=== PATIENT | male | born 1955 | race Caucasian/White ===

== ENCOUNTER 2020-01-09 09:43 | Emergency (ER) | payer MEDICARE, OTHER ==
--- NOTE | 2020-01-09 10:20 | ED Physician Documentation ---
PD HPI HEENT - Stated complaint Stated Complaint: TOOTH PX - History obtained from History obtained from: Patient - History of Present Illness Timing - onset: How many days ago (2-3) Timing - duration: Days Timing - details: Abrupt onset, Still present Location: Tooth (left lower premolar pain at decayed tooth, with swelling of gum and face.) Worsens: Swalllowing, Other (palpation, chewing, opening mouth.) Associated symptoms: No: Fever, Congestion Recently seen: Not recently seen (he tried to get appt with [facility] and no openings available for couple weeks.) Review of Systems Constitutional: denies: Fever, Chills, Myalgias Nose: denies: Rhinorrhea / runny nose, Congestion Throat: denies: Sore throat Cardiac: denies: Chest pain / pressure Respiratory: denies: Cough GI: reports: Nausea. denies: Vomiting PD PAST MEDICAL HISTORY - Past Medical History Past Medical History: No PD ED PE NORMAL - Vitals Vital signs reviewed: Yes - General General: Alert and oriented X 3, Well developed/nourished, Other (appears in pain and has obvious swelling left mandible area. Normal voice. Guarded ROM of mouth opening. ) - HEENT HEENT: Pharynx benign (posterior pharynx is normal. The left lower premolar area with decay of tooth to gumline and there is local swelling of gum and to the mandible soft tissue without fluctuant area per se. Anterior neck with some adenopathy but does not feel full. Normal voice. ) - Neck Neck: Supple, no meningeal sign - Cardiac Cardiac: RRR, No murmur - Respiratory Respiratory: Clear bilaterally PD MEDICAL DECISION MAKING - ED course Complexity details: considered differential, d/w patient Departure - Departure Disposition: 01 Home, Self Care Clinical Impression: Dental abscess, Facial pain, acute Instructions: ED Abscess Dental Discharge Date/Time: 01/09/20 10:41
[2020-01-09] MEDS ORDERED: oxyCODONE 5 MG TABLET ONE (10:43)
[2020-01-09] MEDS ORDERED: CLINDAMYCIN 150 MG CAPSULE PO ONE (10:43)
[2020-01-09] MEDS ORDERED: ACETAMINOPHEN 325 MG TABLET PO ONE (10:44)
== END 2020-01-09 10:41 | disposition home or self-care (01) ==
LOC: ED 09:43
DX: K02.9 Dental caries, unspecified (principal); K04.7 Periapical abscess without sinus; G50.1 Atypical facial pain
CPT/HCPCS: 99282; A9270

== ENCOUNTER 2020-01-12 11:08 | Inpatient (IN) | payer OTHER ==
[2020-01-12] MEDS ORDERED: HYDROmorphone 1 MG/ML CARPUJECT IVP STA ×2 (11:43→13:48)
--- NOTE | 2020-01-12 11:45 | ED Physician Documentation ---
History of Present Illness - Stated complaint Stated Complaint: MOUTH PX/SWELLING - Chief complaint Chief Complaint: Heent - History obtained from History obtained from: Patient - Additonal information Additional information: 64-year-old male who has a history of hypertension and diabetes returns to the emergency department with worsening left lower jaw pain and facial swelling. He was seen here 3 days ago for similar and found to have a decayed molar. He was started on clindamycin and advised to follow-up with dentistry. Patient reports to me that he went to [facility] dental clinics but was told that the infection was too severe for them to do work on. Since then he has had progressive swelling of the jaw. He some very mild trismus and reports that his neck hurts. He has no fevers. No dysphonia. he denies chest pain, but reports that he is nauseated when he takes the clindamycin. denies vomiting has a hx of dm; does not check his blood glucose at home pmh: htn, DM soc: + tobacco meds: metformin, gabapentin, Omeprazole, propranolol, atorvastatin, chlorthalidone, trazodone, losartan Review of Systems Constitutional: denies: Fever, Chills, Myalgias, Fatigue Eyes: reports: Reviewed and negative Ears: reports: Reviewed and negative Nose: reports: Reviewed and negative Throat: reports: Dental pain / toothache, Sore throat, Other (left lower facial swelling extending just below mandible) Cardiac: denies: Chest pain / pressure, Palpitations Respiratory: denies: Dyspnea GI: reports: Nausea. denies: Vomiting : reports: Reviewed and negative Skin: reports: Reviewed and negative Musculoskeletal: reports: Neck pain (left lower). denies: Back pain Neurologic: reports: Reviewed and negative PD PAST MEDICAL HISTORY - Past Medical History Past Medical History: No - Present Medications Home Medications: Ambulatory Orders Medication Instructions Recorded Confirmed Atorvastatin [Lipitor] 20 mg PO DAILY 01/12/20 01/12/20 Chlorthalidone 25 mg PO DAILY 01/12/20 01/12/20 Gabapentin 300 mg PO TID 01/12/20 01/12/20 Losartan [Cozaar] 50 mg PO DAILY 01/12/20 01/12/20 Omeprazole 20 mg PO DAILY 01/12/20 01/12/20 Propranolol HCl 20 mg PO BID 01/12/20 01/12/20 metFORMIN [Glucophage] 850 mg PO TIDWM 01/12/20 01/12/20 traZODone [Desyrel] 100 mg PO HS 01/12/20 01/12/20 - Allergies Allergies/Adverse Reactions: Allergies Allergy/AdvReac Type Severity Reaction Status Date / Time No Known Drug Allergies Allergy Verified 01/12/20 11:16 - Social History Does the pt smoke?: No Smoking Status: Never smoker PD ED PE EXPANDED - General General: Alert, Anxious, In Pain - HEENT HEENT: PERRL, EOMI, Moist mucous membranes, Dental decay (left lower posterior molar grossly decayed to the gumline; no soft tissue swelling of the floor of mouth. normal phonation) - Eyes Eyes: PERRL - Neck Neck: Supple w/out meningeal sx, Adenopathy, Soft tissue TTP (left lateral neck; below angle of mandible. normal swallow though painful), Other (Swelling of the left lower jaw from just below the cheek to below the submandibular region) - Cardiac Cardiac: Regular Rate, Murmur Present, Radial strong equal, Cap refill < 2 sec - Respiratory Respiratory: Clear to ausultation crystal. No: Distress, Labored - Abdomen Abdomen: Normal Bowel sounds. No: Tender to palpation - Derm Derm: Normal color. No: Rash - Neuro Neuro: Alert and Oriented X 3, CNII-XII intact - GCS Eye Opening: Spontaneous Motor: Obeys Commands Verbal: Oriented Total: 15 Results - Vitals Vitals: Vital Signs - 24 hr 01/12/20 01/12/20 11:13 13:42 Temperature 36.6 C Heart Rate 96 83 Respiratory 16 18 Rate Blood Pressure 182/83 H 193/85 H O2 Saturation 98 95 Oxygen O2 Source Room air - EKG (time done) 1229 Rate: Rate (enter#) (84) Rhythm: NSR [place]: Normal Intervals: Prolonged [place], Prolonged QT, Other (IVCD) QRS: Normal Ischemia: Normal ST segments Compare to prior EKG: Old EKG unavailable Computer interpretation: Agree with computer - Labs Labs: Laboratory Tests 01/12/20 01/12/20 01/12/20 11:55 11:55 11:55 WBC 14.9 H RBC 4.98 Hgb 14.4 Hct 41.5 L MCV 83.3 MCH 28.9 MCHC 34.7 RDW 12.7 Plt Count 455 H MPV 9.7 Neut # (Auto) 11.1 H Lymph # (Auto) 1.8 [place] # (Auto) 1.6 H Eos # (Auto) 0.2 Baso # (Auto) 0.1 Absolute Nucleated RBC 0.00 Band Neuts % (Manual) Not Reportable Abnorm Lymph % (Manual) Not Reportable Nucleated RBC % 0.0 Neutrophils # (Manual) Not Reportable Lymphocytes # (Manual) Not Reportable Monocytes # (Manual) Not Reportable Eosinophils # (Manual) Not Reportable Basophils # (Manual) Not Reportable Differential Comment MANUAL=AUTO DIFF Platelet Estimate NORMAL (130-450,000) Platelet Morphology NORMAL APPEARANCE RBC Morph Micro Appear NORMAL APPEARANCE Sodium 137 Potassium 2.5 L* Chloride 91 L Carbon Dioxide 25 Anion Gap 21.0 H BUN 19 Creatinine 1.1 Estimated GFR (MDRD) 67 L Glucose 141 H Calcium 7.9 L Phosphorus Magnesium Total Bilirubin 1.1 H AST 13 ALT 13 Alkaline Phosphatase 65 Troponin I High Sens 8.8 Total Protein 8.4 H Albumin 3.6 Globulin 4.8 H Albumin/Globulin Ratio 0.8 L Lipase 22 01/12/20 11:55 WBC RBC Hgb Hct MCV MCH MCHC RDW Plt Count MPV Neut # (Auto) Lymph # (Auto) [place] # (Auto) Eos # (Auto) Baso # (Auto) Absolute Nucleated RBC Band Neuts % (Manual) Abnorm Lymph % (Manual) Nucleated RBC % Neutrophils # (Manual) Lymphocytes # (Manual) Monocytes # (Manual) Eosinophils # (Manual) Basophils # (Manual) Differential Comment Platelet Estimate Platelet Morphology RBC Morph Micro Appear Sodium Potassium Chloride Carbon Dioxide Anion Gap BUN Creatinine Estimated GFR (MDRD) Glucose Calcium Phosphorus 2.8 Magnesium 0.6 L* Total Bilirubin AST ALT Alkaline Phosphatase Troponin I High Sens Total Protein Albumin Globulin Albumin/Globulin Ratio Lipase - Rads (name of study) CT Neck soft tissue Radiology: Final report received (Phlegmonous change in the left sided mandibular space with adjacent left mandibular teeth demonstrating carious and periodontal disease. No organized rim-enhancing fluid collection identified at this time) PD MEDICAL DECISION MAKING - ED course Complexity details: reviewed results, considered differential, d/w patient, d/w [employer] consultant (Sheila MCELROY) ED course: 64-year-old male with a hx of htn and DMII, returns to the emergency department for evaluation of increased left lower jaw swelling just extending below the submandibular space. He was seen a few days ago for concerns of dental infection. He was started on clindamycin at the time of original ED evaluation. a CT scan today was done which demonstrates a phlegmonous change in the left submandibular area without a rim-enhancing or focalized abscess seen. On exam he is exquisitely painful with mild trismus. This case was discussed with Dr. Sahra Sosa BRANDYN. He would like to see the patient this evening or early in the am. Patient was noted to be hypokalemic with a potassium of 2.5 and a magnesium of 0.6. We have instituted potassium and magnesium replacement here in the emergency department. Given electrolyte abnormalities pt will be admitted to obs status, pending OMFS evaluation. Patient will be n.p.o. as of 1:45 PM. He has been given IV ceftriaxone here in the ED and decadron to help with swelling and trismus. Pt does have a moderately elevated WBC. he is not hypotensive, febrile or tachycardic. Pt does not present as septic. I have spoken with Dr. Hardy hospitalist who has agreed to admit the patient to obs pending OMFS. Departure - Departure Disposition: ED Place in Observation
[2020-01-12] MEDS ORDERED: cefTRIAXone 1 GM in SODIUM CHLORIDE 0.9% MINIBAG 100 ML IV STA (11:50)
[2020-01-12] MEDS ORDERED: ONDANSETRON 4 MG/2 ML VIAL IVP STA (11:51)
[2020-01-12] MEDS ORDERED: IOVERSOL 320 100 ML VIAL IVP ONE ×2 (11:54→17:05)
[2020-01-12 12:00] LABS: BASOPHILS # (AUTO) 0.1 10^3/uL (0.0-0.1); BASOPHILS % (AUTO) 0.5 %; EOSINOPHILS # (AUTO) 0.2 10^3/uL (0.0-0.7); EOSINOPHILS % (AUTO) 1.1 %; HGB - HEMOGLOBIN 14.4 g/dL (14.0-18.0); LYMPHOCYTES # (AUTO) 1.8 10^3/uL (1.5-3.5); LYMPHOCYTES % (AUTO) 12.3 %; MEAN CORPUSCULAR HEMOGLOBIN 28.9 pg (27.0-31.0); MEAN CORPUSCULAR HGB CONC 34.7 g/dL (32.0-36.0); MEAN CORPUSCULAR VOLUME 83.3 fL (80.0-94.0); MEAN PLATELET VOLUME 9.7 fL (7.4-11.4); MONOCYTES # (AUTO) 1.6 10^3/uL (0.0-1.0); MONOCYTES % (AUTO) 10.7 %; NEUTROPHILS # (AUTO) 11.1 10^3/uL (1.5-6.6); NEUTROPHILS % (AUTO) 74.7 %; PLT - PLATELET COUNT 455 10^3/uL (130-450); RED BLOOD COUNT 4.98 10^6/uL (4.70-6.10); RED CELL DISTRIBUTION WIDTH 12.7 % (12.0-15.0); WHITE BLOOD COUNT 14.9 x10^3/uL (4.8-10.8)
[2020-01-12] MEDS ORDERED: cefTRIAXone 1 GM VIAL ONE (12:06)
[2020-01-12 12:18] LABS: ALBUMIN 3.6 g/dL (3.2-5.5); ALBUMIN/GLOBULIN RATIO 0.8 (1.0-2.2); BILIRUBIN,TOTAL 1.1 mg/dL (0.2-1.0); CALCIUM 7.9 mg/dL (8.5-10.3); CREATININE 1.1 mg/dL (0.6-1.2); TOTAL PROTEIN 8.4 g/dL (6.7-8.2)
[2020-01-12] MEDS ORDERED: POTASSIUM CHLOR 10 MEQ/100 ML 10 MEQ/100 ML BAG IV ONE (12:22)
[2020-01-12] MEDS ORDERED: POTASSIUM CHLORIDE 20 MEQ/15 ML UDC PO STA (12:22)
[2020-01-12 12:28] LABS: PLATELET ESTIMATE, MANUAL NORMAL (130-450,000) (NORMAL); PLATELET MORPHOLOGY NORMAL APPEARANCE (NORMAL); RBC MORPHOLOGY (MULTIPLE) NORMAL APPEARANCE (NORMAL)
[2020-01-12 12:29] LABS: DIFFERENTIAL COMMENT MANUAL=AUTO DIFF
[2020-01-12 12:59] LABS: PHOSPHORUS 2.8 mg/dL (2.5-4.6)
[2020-01-12 13:01] LABS: MAGNESIUM 0.6 mg/dL (1.7-2.8)
[2020-01-12] MEDS ORDERED: MAGNESIUM SULFATE 2 GRAM 2 GM/50 ML BAG IV ONE ×2 (13:04→19:00)
--- NOTE | 2020-01-12 13:33 | CT Report ---
PROCEDURE: SOFT TISSUE NECK W INDICATIONS: Dental infection, neck swelling CONTRAST: IV CONTRAST: Optiray 320 ml: 100 PO CONTRAST: *NO PO CONTRAST TECHNIQUE: After the administration of intravenous contrast, 3.0 mm axial sections acquired from the sella to th e aortic arch. Additional oblique axial 3.0 mm sections acquired through the pharynx. 3 mm thick co prudencio reformats were generated. For radiation dose reduction, the following was used: automated exp osure control, adjustment of mA and/or kV according to patient size. COMPARISON: None. FINDINGS: Image quality: Excellent. Lymph nodes: No enlarged lymph nodes seen throughout the neck. Vessels: Reactive lymphadenopathy in the left neck is present, involving the anterior cervical statio ns at levels 2, 3, and 4. Neck spaces: There is masslike hypodense phlegmonous change in the left seventh interspace which gigi sures approximately 3.6 x 4.3 cm in maximum axial dimension and 5.5 cm maximum cranial caudal dimensi on. This does not appear to be organized or peripherally enhancing to indicate abscess. There is mass effect on the adjacent vasculature and to a lesser degree on the floor of mouth musculature. Mild ma ss effect also present on the submandibular gland. No significant oropharyngeal narrowing. Glands: The parotid and submandibular glands appear normal. The thyroid is normal in size. Intracranial compartment and face: Limited views of the included intracranial compartment reveal no m ass effect or abnormal enhancement. Orbital structures unremarkable. Visualized portions of the paran sahil sinuses and mastoid air cells are clear. Bones: There are carious lesions and periapical lucencies of the left mandibular first and second mo lars, with the reduction through the lingual cortex and inferior mandibular cortex adjacent to the se cond molar into the left submandibular space. No suspicious bony lesions. Visualized sinuses and mas toids appear unremarkable. IMPRESSION: Phlegmonous change in the left-sided mandibular space with adjacent left mandibular teeth demonstrati ng carious and periodontal disease. No organized rim-enhancing fluid collection identified at this ti me. Reviewed by: Joao Mcmahon MD on 01/12/2020 1:31 PM PDT Approved by: Joao Mcmahon MD on 01/12/2020 1:31 PM PDT Station ID: [id number]
[2020-01-12] MEDS ORDERED: AMOX/CLAV 875 MG/125 MG TABLET PO STA (13:37)
[2020-01-12] MEDS ORDERED: DEXAMETHASONE 10 MG/ML VIAL IV STA (13:48)
[2020-01-12] MEDS ORDERED: SODIUM CHLORIDE FLUSH 0.9% 10 ML SYRINGE IVP PRN (14:20)
[2020-01-12] MEDS ORDERED: oxyCODONE 5 MG TABLET PO PRN (14:20)
[2020-01-12] MEDS ORDERED: ONDANSETRON ODT 4 MG TABLET TL PRN (14:20)
[2020-01-12] MEDS ORDERED: ONDANSETRON 4 MG/2 ML VIAL IVP PRN (14:20)
[2020-01-12] MEDS ORDERED: PROCHLORPERAZINE 10 MG/2 ML VIAL IVP PRN (14:56)
[2020-01-12] MEDS ORDERED: PIPERACILLIN/TAZOBACTAM 4.5 GM in SODIUM CHLORIDE 0.9% MINIBAG 100 ML IV SCH (15:00)
[2020-01-12] MEDS ORDERED: LACTATED RINGERS 1,000 ML IV SCH (15:00)
--- NOTE | 2020-01-12 15:18 | PHARMACY PROGRESS NOTE ---
- Best Possible Medication History Admit Date and Time: 01/12/20 1420 Processed by: Nursing Medication History completed: Yes As the person ultimately responsible for medication therapy, providers are able to order a medication from an existing home medication list in [facility] via the "Reconcile Routine" prior to Confirmation of that medication by network desktop support specialist. Such practice is discouraged except when the physician, in their clinical judgment, deems that a medical need exists for a medication without regard to previous use.
--- NOTE | 2020-01-12 15:21 | HISTORY & PHYSICAL EXAMINATION ---
Chief Complaint - Chief Complaint Chief Complaint: dental pain History of Present Illness - Admitted From Admitted From:: HOme/ER - History Obtained From Records Reviewed: [facility] History obtained from: patient and ROSALINDA Parks Exam Limitations: none - History of Present Illness HPI Comment/Other: 64-year-old gentleman who has diabetes mellitus, hypertension and presented to the emergency room January 08 with tooth pain. The left lower premolar region, and was causing some swelling of the gingiva, and soft tissues of the face in that area. It really hurts to chew, and it was pain that was radiating to the left ear. He has been trying to get an appointment with [facility] and there have been no openings. Dr. Claudio sent him home with antibiotics/clindamycin and to be seen at [facility]. They did finally see him at [facility], but the dental abscess was so severe, they sent him back to the emergency room. The pain is getting worse. The swelling is getting worse. There is heat and trismus associated with it in the jaw. But there is no nausea, vomiting. No fever, chills. He was seen in the emergency room with a temperature of 36.6. Heart rate 96. Blood pressure 182/83. 16 respiration and 98% saturation on room air. He has dental decay of the left lower posterior molar that was decayed to the gumline. No soft tissue swelling at the roof of the mouth or the floor of the mouth. The neck was supple. He had swelling of the left lateral neck, below the angle of the mandible. Also had swelling above the jawline to just below the zygomatic arch. Painful swallowing but he was able to do it. White cell count was 14.9. CT neck/soft tissue showed phlegmonous changes in the left-sided mandibular space with adjacent left mandibular teeth demonstrating caries and periodontal disease. No organized rim-enhancing fluid collection at this time. Dr. Jatinder Sosa was consulted. He is oral maxillofacial surgery. He would like the patient placed in observation under our care. He will see the patient in consultation. History - Past Medical History Cardiovascular: reports: Hypertension, High cholesterol Respiratory: reports: None Neuro: reports: Peripheral neuropathy (Severe from mid shins down to feet), Tremors (With masked facies, and frozen gait) Endocrine/Autoimmune: reports: Type 2 diabetes (Gets A1c done once a year. He is about due for one. Cannot remember his last one. Does not check his sugars at home.) GI: reports: None : reports: None HEENT: reports: Other (Previous history of facial fractures, jaws being wired and cannot open up his mouth very much) Psych: reports: Anxiety, Claustrophobia Derm: reports: None MRSA Hx?: No Other Past Medical History: diabetic neuropathy - Past Surgical History HEENT: reports: Other (Treatment of facial fractures) - Family & Social History Family History Comment/Other: Dad at age 62 of heart disease. Mom in her 50s of heart disease. 1 brother and 2 sisters. He is not in contact with the sisters. His brother has an AICD in place, and has coronary artery disease. 2 daughters. One daughter has developmental delay. Severe obesity. Most likely has high blood pressure and diabetes but she refuses to take care of it. Living arrangement: At home Living Situation: With spouse/s.o., With family Social History Notes: He was in the and is retired. 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 Was on his feet for decades. 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 to his first . Both his daughters live with them. And one of their grandkids. He started smoking at the age of 14 and smokes a pack per day. Used to have a history of alcohol abuse but his last use was 10 years ago. - Substance History Tobacco Details: Cigarettes - POLST Patient has POLST: No POLST Status: Full Code Meds/Allgy - Home Medications Home Medications: Ambulatory Orders Medication Instructions Recorded Confirmed Atorvastatin [Lipitor] 20 mg PO DAILY 01/12/20 01/12/20 Chlorthalidone 25 mg PO DAILY 01/12/20 01/12/20 Gabapentin 300 mg PO TID 01/12/20 01/12/20 Losartan [Cozaar] 50 mg PO DAILY 01/12/20 01/12/20 Omeprazole 20 mg PO DAILY 01/12/20 01/12/20 Propranolol HCl 20 mg PO BID 01/12/20 01/12/20 metFORMIN [Glucophage] 850 mg PO TIDWM 01/12/20 01/12/20 traZODone [Desyrel] 100 mg PO HS 01/12/20 01/12/20 - Allergies Allergies/Adverse Reactions: Allergies Allergy/AdvReac Type Severity Reaction Status Date / Time No Known Drug Allergies Allergy Verified 01/12/20 11:16 Review of Systems - Constitutional Constitutional: denies: Fatigue, Fever, Chills, Malaise, Weakness, Poor appetite - Eyes Eyes: denies: Pain, Amaurosis, Vision loss - Ears, Nose & Throat Ears, Nose & Throat: reports: Sore throat (Along the left side. It hurts. This is associated with the dental caries.), Bleeding gums, Dental decay, Dental pain. denies: Hearing aids, Nasal obstruction, Nasal congestion, Postnasal drainage, Hoarseness, Mouth lesions - Cardiovascular Cariovascular: denies: Irregular heart rate, Palpitations, Chest pain, Edema, Syncope, Exertional dyspnea, Decr. exercise tolerance, Orthopnea - Respiratory Respiratory: reports: Other (Smoking does not appear to affect any of his pulmonary problems he said). denies: Cough, Sputum production, Wheezing, Snoring, SOB at rest, SOB with exertion - Gastrointestinal Gastrointestinal: reports: Nausea. denies: Abdominal pain, Abdominal distention, Constipation, Diarrhea, Change in bowel habits, Rectal bleeding, Vomiting, Reflux/heartburn, Bloating - Genitourinary Genitourinary: reports: Other (He is alarmed when I ask him these questions. He says "I know what vascularly to". He thinks I am about to give him a prostate exam and he is adamant he has never had 1 and never will get 1). denies: Dysuria, Frequency, Urgency, Hematuria, Incontinence - Musculoskeletal Musculoskeletal: reports: Other (Chronic lancinating burning pain of his skin and muscles from mid [place] down to his feet.It hurts to walk. As such she does not exercise.) - Integumentary Integumentary: denies: Rash, Pruritis, Lesions, Dryness - Neurological Neurological: denies: General weakness, Focal weakness, Headache, Memory problems, Pre-existing deficit - Psychiatric Psychiatric: reports: Anxiety. denies: Suicidal, Delusions - Endocrine Endocrine: denies: Polyuria, Polydypsia, Polyphagia - Hematologic/Lymphatic Hematologic/Lymphatic: denies: Anemia, Blood clots, Lymphadenopathy Prior Level of Functionality: Independent with activities of daily living. Needs no assist. Still drives a car, pays bills, takes care of his house.Really does not get to the doctor very often. He is followed by the [facility] in [place]. Exam - Vital Signs Vital Signs: Vital Signs x48h Temp Pulse Pulse Resp BP BP Pulse Ox 01/12/20 15:06 37.5 C 79 16 189/67 H 96 01/12/20 14:43 78 12 156/73 H 99 01/12/20 13:42 83 18 193/85 H 95 01/12/20 11:13 36.6 C 96 16 182/83 H 98 - Physical Exam General Appearance: positive: Alert, Moderate distress (His left jaw, left ear are killing him and he would like something for pain. "I am not staying here af ter tomorrow morning so you better fix this"), Other (Disheveled appearing tall white male with a pastrana. He says he is really scared about getting Covid in this place) Eyes Bilateral: positive: PERRL, EOMI ENT: positive: Other (Gingivitis diffusely but the floor of his left gums are particularly bad with a tooth that is down to the gumline. Pain to touch. But no drainage or bogginess. Pain starts along the submandibular area and along the jawline. Redness, swelling going above the jawline to just under his cheekbone, d) Neck: positive: Trachea midline Respiratory: positive: Chest non-tender. negative: Wheezes, Rales, Rhonchi Cardiovascular: positive: Regular rate & rhythm, Other (Very hypertensive while he is here.). negative: Systolic murmur, Gallop/S4, Friction rub Peripheral Pulses: positive: 0 Abdomen: positive: Non-tender, No organomegaly, Nml bowel sounds, No distention Skin: positive: Warm, Dry. negative: Diaphoresis Extremities: positive: Full ROM, No pedal edema, Other (He does not like to have the skin or muscles touched around the calves, shins, feet. He says that he is hyperesthetic and it is just very uncomfortable to have anybody examine his lower extremities due to his peripheral neuropathy.). negative: Joint swelling Neurologic/Psychiatric: positive: Oriented x3, CN's nml (2-12). negative: Motor nml (Bilateral resting and intention tremors of the upper extremities. No cogwheel rigidity. He describes gait ataxia.), Sensation nml (Dense loss of sensation from feet all the way up to mid calf), Slurred/abnml speech Conclusion/Plan - Problem List (1) Submandibular space infection Conclusion/Plan: Considering this patient is immunocompromised with diabetes, recommendations are that he can be on cefepime plus metronidazole or imipenem or meropenem or Zosyn. I have chosen Zosyn. Plan: Observation status Consultation with oral maxillofacial surgery Zosyn Daily CBC Tylenol for mild pain, short acting opiate for moderate pain, morphine for severe pain. Zofran written for but his QT interval is very long. As such switch to Compazine. (2) Pre-op exam Conclusion/Plan: NSQIP calculator For this semiurgent case with diabetes, smoker, male shows a serious complication risk of 8.5%. Any complication 10.4%. He will probably need 2-1/2 days according to their scoring. Will reassess tomorrow morning. Dr. Sosa plans on doing surgery at 6 AM. After surgery see if we need to change status to inpatient. (3) Controlled type 2 diabetes mellitus Conclusion/Plan: Sliding scale insulin. We will hold off on metformin while he is here. Qualifiers: Diabetes mellitus alf insulin use: without laborer marine terminal use Diabetes mellitus complication status: without complication Qualified Code(s): E11.9 - Type 2 diabetes mellitus without complications (4) Electrolyte disturbance Conclusion/Plan: Hypokalemia, hypomagnesemia. He is received 10 mEq IV potassium in the ER with 20 mEq p.o. He is also received 2 g of magnesium. Repeat level check in the next 4 hours. Supplement as needed. (5) HTN (hypertension) Conclusion/Plan: Resume Cozaar, propranolol in the morning. Hold off on chlorthalidone until he is eating and drinking normally. Qualifiers: Hypertension type: essential hypertension Qualified Code(s): I10 - Essential (primary) hypertension (6) Tremor observed on examination Conclusion/Plan: He says that there is a possibility of Parkinson's. But he is never really talked about it with [facility]. He has had this for several decades now. Noticing that he is having more problems with gait ataxia and freezing movements. Plan: I will find out where to send this current [facility]. I have reached out to the [facility]. Left my name and number for them to call me so I can fax them a note. - Lab Results Lab results reviewed: Yes Fish Bones: 01/12/20 11:55 01/12/20 18:18 - Diagnostic Imaging Results Diagnostic Imaging Results: positive: Final report reviewed Diagnostic Imaging Results Comments: report result noted in HPI. - EKG Results EKG Interpreted Independently: No Core Measures - Anticipated LOS I expect patient to be DC'd or transferred within 96 hours.: Yes - DVT/VTE - Prophylaxis VTE/DVT Device ordered at admit?: Yes
[2020-01-12] MEDS: MORPHINE 2 MG/ML CARPUJECT IVP PRN ×3 (15:57→21:35)
[2020-01-12] MEDS: NICOTINE 14 MG PATCH TOP SCH (15:57)
[2020-01-12] MEDS: SODIUM CHLORIDE FLUSH 0.9% 10 ML SYRINGE IVP SCH (15:58)
[2020-01-12] MEDS ORDERED: SODIUM CHLORIDE 0.9% 1,000 ML IV ONE (16:15)
[2020-01-12] MEDS: SODIUM CHLORIDE 0.9% 1,000 ML IV SCH (16:22)
--- NOTE | 2020-01-12 19:11 | CONSULTATION NOTE ---
Referring Provider Name of Referring Provider:: Coco Hardy Consult Date: 01/12/20 Chief Complaint - Chief Complaint Chief Complaint: jaw pain History of Present Illness - Admitted From Admitted From:: ER - History Obtained From History obtained from: Patient and chart - History of Present Illness HPI Comment/Other: Bandar is a 64 yo M who has is admitted for swelling of the left neck and electrolyte imbalance. He reports that his neck has been swollen for "2-3 weeks" and that recently it has become much worse. Two days ago he presented to the ER and was started on Clindamycin and then asked to visit his dentist. He was unable to be treated at the dentist and he worsened, until today when he presented again to the ER. He was found to have a K+ of 2.5 and a Mg of 0.6. CT of the neck revealed a 4 cm flegmon in the left sumandibular region. OMFS was consulted for evaluation and management of his swelling. He endorses pain when swallowing, poor PO intake, chronic difficulty opening 2/2 trauma to the face years ago requiring reconstruction, and severe anxiety about staying in the hospital. He denies fever, chills, nausea, emesis, vision changes, dyspnea, chest pain. History - Past Medical History Cardiovascular: reports: Hypertension, High cholesterol Respiratory: reports: None Neuro: reports: Peripheral neuropathy (Severe from mid shins down to feet), Tremors (With masked facies, and frozen gait) Endocrine/Autoimmune: reports: Type 2 diabetes (Gets A1c done once a year. He is about due for one. Cannot remember his last one. Does not check his sugars at home.) GI: reports: None : reports: None HEENT: reports: Other (Previous history of facial fractures, jaws being wired and cannot open up his mouth very much) Psych: reports: Anxiety, Claustrophobia Musculoskeletal: reports: Other Derm: reports: None MRSA Hx?: No Other Past Medical History: diabetic neuropathy - Past Surgical History HEENT: reports: Other (Treatment of facial fractures) - Family & Social History Family History Comment/Other: Dad at age 62 of heart disease. Mom in her 50s of heart disease. 1 brother and 2 sisters. He is not in contact with the sisters. His brother has an AICD in place, and has coronary artery disease. 2 daughters. One daughter has developmental delay. Severe obesity. Most likely has high blood pressure and diabetes but she refuses to take care of it. Living arrangement: At home Living Situation: With spouse/s.o., With family Social History Notes: He was in the and is retired. 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 Was on his feet for decades. 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 to his first . Both his daughters live with them. And one of their grandkids. He started smoking at the age of 14 and smokes a pack per day. Used to have a history of alcohol abuse but his last use was 10 years ago. - Substance History Tobacco Details: Cigarettes - POLST Patient has POLST: No POLST Status: Full Code Meds/Allgy - Home Medications Home Medications: Ambulatory Orders Medication Instructions Recorded Confirmed Atorvastatin [Lipitor] 20 mg PO DAILY 01/12/20 01/12/20 Chlorthalidone 25 mg PO DAILY 01/12/20 01/12/20 Gabapentin 300 mg PO TID 01/12/20 01/12/20 Losartan [Cozaar] 50 mg PO DAILY 01/12/20 01/12/20 Omeprazole 20 mg PO DAILY 01/12/20 01/12/20 Propranolol HCl 20 mg PO BID 01/12/20 01/12/20 metFORMIN [Glucophage] 850 mg PO TIDWM 01/12/20 01/12/20 traZODone [Desyrel] 100 mg PO HS 01/12/20 01/12/20 - Allergies Allergies/Adverse Reactions: Allergies Allergy/AdvReac Type Severity Reaction Status Date / Time No Known Drug Allergies Allergy Verified 01/12/20 11:16 Review of Systems - Constitutional Constitutional: reports: Other (A 14 point ROS was completed and negative except as noted in HPI.) Exam - Vital Signs Reviewed Vital Signs: Yes Vital Signs: Vital Signs x48h Temp Pulse Pulse Resp BP BP Pulse Ox 01/12/20 16:57 37.3 C 75 20 158/77 H 94 01/12/20 15:06 37.5 C 79 16 189/67 H 96 01/12/20 14:43 78 12 156/73 H 99 01/12/20 13:42 83 18 193/85 H 95 01/12/20 11:13 36.6 C 96 16 182/83 H 98 - Physical Exam General Appearance: positive: Mild distress Eyes Bilateral: positive: PERRL, EOMI ENT: positive: Other (BLANK 28mm. FOM elevated on the L, Tongue not elevated. No drainage. Difficult to see the decayed teeth, but it is clear there there are decayed mandibular left posterior teeth. Uvula midline, no lateral pharyngeal swelling.) Neck: positive: Other (swelling and induration of the left submandibular space, unable to palpate the inferior border of the mandible on the left. Mild erythema of the overlying skin.) Respiratory: positive: Chest non-tender, No respiratory distress Cardiovascular: positive: Regular rate & rhythm Abdomen: positive: Non-tender, No distention Skin: positive: Color nml Extremities: positive: Non-tender, Full ROM Neurologic/Psychiatric: positive: CN's nml (2-12) Conclusion/Plan - Diagnosis Diagnosis: Abscess of the left submandibular, sublingual, and buccal spaces secondary to necrotic posterior left mandibular teeth - Plan Plan: Extraoral incision and drainage of the left submandibular, sublingual, and buccal spp w/ removal of teeth as needed. - NPO after 10pm tonight - surgery at 0600 tomorrow - follow K+ and Mg - Recommend Unasyn 3g q6h while in house and Augmentin 875mg BID x 7 days after d/c - Anticipate d/c on Thursday in the am if progressing well Thank you for including me in Bandar's care. Please call me if you have any questions. Jatinder Sosa DDS [phone] - Lab Results Lab results reviewed: Yes Fish Bones: 01/12/20 11:55 01/12/20 18:18 - Diagnostic Imaging Results Diagnostic Imaging Results: positive: Other (4-5 cm perimandibular abscess on the L w/ mild mass effect on the airway.)
--- NOTE | 2020-01-12 19:19 | ANESTHESIA ---
Pre-Anesthesia VS, & Labs - Diagnosis Left neck abscess secondary to necrotic mandibular teeth - Procedure Percutaneous incision and drainage of left neck with removal of teeth as necessary Vital Signs: Temp Pulse Resp BP Pulse Ox 37.3 C 75 20 158/77 H 94 01/12/20 16:57 01/12/20 16:57 01/12/20 16:57 01/12/20 16:57 01/12/20 16:57 Height: 6 ft 4 in Weight (kg): 104.5 kg Body Mass Index: 28.0 BMI Classification: Overweight - NPO >8 hours - Lab Results Current Lab Results: Laboratory Tests 01/12/20 18:18: Magnesium 1.2 L 01/12/20 18:18: Potassium 2.8 L 01/12/20 11:55: Phosphorus 2.8, Magnesium 0.6 L* 01/12/20 11:55: Troponin I High Sens 8.8 01/12/20 11:55: Sodium 137, Potassium 2.5 L*, Chloride 91 L, Carbon Dioxide 25, Anion Gap 21.0 H, BUN 19, Creatinine 1.1, Estimated GFR (MDRD) 67 L, Glucose 141 H, Calcium 7.9 L, Total Bilirubin 1.1 H, AST 13, ALT 13, Alkaline Phosphatase 65, Total Protein 8.4 H, Albumin 3.6, Globulin 4.8 H, Albumin/Globulin Ratio 0.8 L, Lipase 22 01/12/20 11:55: WBC 14.9 H, RBC 4.98, Hgb 14.4, Hct 41.5 L, MCV 83.3, MCH 28.9, MCHC 34.7, RDW 12.7, Plt Count 455 H, MPV 9.7, Neut # (Auto) 11.1 H, Lymph # (Auto) 1.8, [place] # (Auto) 1.6 H, Eos # (Auto) 0.2, Baso # (Auto) 0.1, Absolute Nucleated RBC 0.00, Band Neuts % (Manual) Not Reportable, Abnorm Lymph % (Manual) Not Reportable, Nucleated RBC % 0.0, Neutrophils # (Manual) Not Reportable, Lymphocytes # (Manual) Not Reportable, Monocytes # (Manual) Not Reportable, Eosinophils # (Manual) Not Reportable, Basophils # (Manual) Not Reportable, Differential Comment MANUAL=AUTO DIFF, Platelet Estimate NORMAL (130-450,000), Platelet Morphology NORMAL APPEARANCE, RBC Morph Micro Appear NORMAL APPEARANCE Fish Bones: 01/12/20 11:55 01/12/20 18:18 Home Medications and Allergies Home Medications: Ambulatory Orders Atorvastatin [Lipitor] 20 mg PO DAILY 01/12/20 Chlorthalidone 25 mg PO DAILY 01/12/20 Gabapentin 300 mg PO TID 01/12/20 Losartan [Cozaar] 50 mg PO DAILY 01/12/20 Omeprazole 20 mg PO DAILY 01/12/20 Propranolol HCl 20 mg PO BID 01/12/20 metFORMIN [Glucophage] 850 mg PO TIDWM 01/12/20 traZODone [Desyrel] 100 mg PO HS 01/12/20 Active Medications Atorvastatin Calcium (Lipitor) 20 mg PO DAILY [facility] Gabapentin (Neurontin) 300 mg PO TID [facility] Piperacillin Sod/Tazobactam (Sod 4.5 gm/ Sodium Chloride) 100 mls @ 25 mls/hr IV Q8H [facility] Sodium Chloride (Normal Saline 0.9%) 1,000 mls @ 125 mls/hr IV .Q8H [facility] Last Admin: 01/12/20 16:22 Dose: 125 mls/hr Documented by: Potassium Chloride (Potassium Chloride) 10 meq in 100 mls @ 100 mls/hr IV Q1H [facility]ANG Stop: 01/12/20 22:59 Magnesium Sulfate (Magnesium Sulfate) 2 gm in 50 mls @ 50 mls/hr IV ONCE ONE Stop: 01/12/20 19:59 Insulin Human Regular (Humulin R) 1 - 9 unit SUBQ Q6HR [facility]; Protocol Losartan Potassium (Cozaar) 50 mg PO DAILY [facility] Morphine Sulfate (Morphine (Carpuject)) 2 mg IVP Q2HR PRN PRN Reason: Pain 8 to 10 Last Admin: 01/12/20 19:03 Dose: 2 mg Documented by: Nicotine (Nicoderm) 1 patch TOP DAILY [facility] Last Admin: 01/12/20 15:57 Dose: 1 patch Documented by: Oxycodone HCl (Roxicodone) 5 mg PO Q4HR PRN PRN Reason: Pain 5 to 7 Prochlorperazine Edisylate (Compazine Inj) 10 mg IVP Q6HR PRN PRN Reason: Nausea / Vomiting Propranolol HCl (Inderal) 20 mg PO BID [facility] Sodium Chloride (Normal Saline Flush 0.9%) 10 ml IVP PRN PRN PRN Reason: NEEDED PER PROVIDER ORDERS Last Admin: 01/12/20 14:59 Dose: 10 ml Documented by: Sodium Chloride (Normal Saline Flush 0.9%) 10 ml IVP 0100,0900,1700 [facility] Last Admin: 01/12/20 15:58 Dose: 10 ml Documented by: Trazodone HCl (Desyrel) 100 mg PO HS [facility] Atorvastatin [Lipitor] 20 mg PO DAILY 01/12/20 Chlorthalidone 25 mg PO DAILY 01/12/20 Gabapentin 300 mg PO TID 01/12/20 Losartan [Cozaar] 50 mg PO DAILY 01/12/20 Omeprazole 20 mg PO DAILY 01/12/20 Propranolol HCl 20 mg PO BID 01/12/20 metFORMIN [Glucophage] 850 mg PO TIDWM 01/12/20 traZODone [Desyrel] 100 mg PO HS 01/12/20 Allergies/Adverse Reactions: Allergies Allergy/AdvReac Type Severity Reaction Status Date / Time No Known Drug Allergies Allergy Verified 01/12/20 11:16 Anes History & Medical History - Anesthetic History Anesthesia Complications: reports: No previous complications - Medical History Cardiovascular: reports: Hypertension, High cholesterol Pulmonary: reports: None Gastrointestinal: reports: None Urinary: reports: None Neuro: reports: Peripheral neuropathy (Severe from mid shins down to feet), Tremors (With masked facies, and frozen gait) Musculoskeletal: reports: Other Endocrine/Autoimmune: reports: Type 2 diabetes (Gets A1c done once a year. He is about due for one. Cannot remember his last one. Does not check his sugars at home.) Blood Disorders: reports: None Skin: reports: None Smoking Status: Current every day smoker (50 yr pack history) Other Past Medical History: diabetic neuropathy - Surgical History Eyes Ears Nose Throat (EENT): Other (Treatment of facial fractures) Exam General: Alert, Oriented x3, Cooperative, No acute distress Dental: Poor dentition Mouth Openin Fingerbreadth (FB) Neck Mobility: Normal Mallampati classification: IV Thyromental Distance: 4-6 cm Mental/Cognitive Status: Alert/Oriented X3, Normal for patient Plan Anesthesia Type: General Consent for Procedure(s) Verified and Reviewed: Yes Code Status: Attempt Resuscitation ASA classification: 3-Severe systemic disease Is this case an emergency?: No
[2020-01-12] MEDS: PIPERACILLIN/TAZOBACTAM 4.5 GM in SODIUM CHLORIDE 0.9% MINIBAG 100 ML IV SCH (19:46)
[2020-01-12] MEDS: INSULIN REGULAR HUMAN 300 UNIT/3 ML VIAL SUBQ SCH (19:57)
[2020-01-12] MEDS: POTASSIUM CHLOR 10 MEQ/100 ML 10 MEQ/100 ML BAG IV SCH ×3 (20:48→23:36)
[2020-01-12] MEDS: GABAPENTIN 300 MG CAPSULE PO SCH (21:35)
[2020-01-12] MEDS: PROPRANOLOL 10 MG TABLET PO SCH (21:35)
[2020-01-12] MEDS: traZODone 50 MG TABLET PO SCH (21:35)
[2020-01-13] MEDS: MORPHINE 2 MG/ML CARPUJECT IVP PRN ×2 (00:09→03:58)
[2020-01-13] MEDS: SODIUM CHLORIDE FLUSH 0.9% 10 ML SYRINGE IVP SCH ×3 (00:10→17:09)
[2020-01-13] MEDS: POTASSIUM CHLOR 10 MEQ/100 ML 10 MEQ/100 ML BAG IV SCH (00:58)
[2020-01-13] MEDS: INSULIN REGULAR HUMAN 300 UNIT/3 ML VIAL SUBQ SCH ×4 (01:01→19:47)
[2020-01-13] MEDS: SODIUM CHLORIDE 0.9% 1,000 ML IV SCH ×2 (01:28→10:42)
[2020-01-13] MEDS: PIPERACILLIN/TAZOBACTAM 4.5 GM in SODIUM CHLORIDE 0.9% MINIBAG 100 ML IV SCH ×3 (03:36→19:47)
[2020-01-13] MEDS ORDERED: OXYMETAZOLINE HCL 100 SPRAYS BOTTLE NAS ONE (05:47)
[2020-01-13] MEDS ORDERED: LIDOCAINE 2%-EPI 1:100000 20 ML MDV ONE (05:47)
[2020-01-13] MEDS ORDERED: BUPIVACAINE 0.25%-EPI 1:200000 PF 30 ML VIAL ONE (05:48)
[2020-01-13 05:50] LABS: BASOPHILS % (AUTO) 0.3 %; LYMPHOCYTES # (AUTO) 1.3 10^3/uL (1.5-3.5); MEAN CORPUSCULAR HEMOGLOBIN 28.3 pg (27.0-31.0); MEAN CORPUSCULAR HGB CONC 33.8 g/dL (32.0-36.0); MEAN CORPUSCULAR VOLUME 83.7 fL (80.0-94.0); MEAN PLATELET VOLUME 9.4 fL (7.4-11.4); MONOCYTES # (AUTO) 0.9 10^3/uL (0.0-1.0); MONOCYTES % (AUTO) 6.2 %; NEUTROPHILS # (AUTO) 12.4 10^3/uL (1.5-6.6); PLT - PLATELET COUNT 430 10^3/uL (130-450); RED CELL DISTRIBUTION WIDTH 12.5 % (12.0-15.0); WHITE BLOOD COUNT 14.8 x10^3/uL (4.8-10.8)
[2020-01-13] MEDS ORDERED: CHLORHEXIDINE GLUCONATE 15 ML UDC PO ONE ×2 (05:52→06:20)
[2020-01-13 06:03] LABS: CALCIUM 7.8 mg/dL (8.5-10.3); CREATININE 0.9 mg/dL (0.6-1.2); MAGNESIUM 1.8 mg/dL (1.7-2.8); PHOSPHORUS 1.9 mg/dL (2.5-4.6)
[2020-01-13] MEDS ORDERED: PROPOFOL 200 MG/20 ML VIAL IVP ONE (06:17)
[2020-01-13] MEDS ORDERED: SUCCINYLCHOLINE 200 MG/10 ML VIAL IVP ONE (06:17)
[2020-01-13] MEDS ORDERED: NEOSTIGMINE 1 MG/1 ML 10 ML MDV IVP ONE (06:17)
[2020-01-13] MEDS ORDERED: MIDAZOLAM 2 MG/2 ML VIAL IVP ONE (06:17)
[2020-01-13] MEDS ORDERED: LABETALOL 5 MG/1 ML 20 ML MDV IVP ONE (06:17)
[2020-01-13] MEDS ORDERED: ONDANSETRON 4 MG/2 ML VIAL IVP ONE (06:17)
[2020-01-13] MEDS ORDERED: fentaNYL 100 MCG/2 ML VIAL IVP ONE (06:17)
[2020-01-13] MEDS ORDERED: GLYCOPYRROLATE 1 MG/5 ML VIAL IVP ONE (06:17)
[2020-01-13] MEDS ORDERED: ROCURONIUM 50 MG/5 ML VIAL IVP ONE (06:17)
[2020-01-13] MEDS ORDERED: DEXAMETHASONE 4 MG/ML VIAL IVP ONE (06:17)
[2020-01-13] MEDS ORDERED: LIDOCAINE MPF 1%-EPI 1:200000 30 ML VIAL SUBQ ONE (06:20)
[2020-01-13] MEDS ORDERED: POTASSIUM CHLORIDE 20 MEQ TABLET PO ONE (06:49)
[2020-01-13] MEDS ORDERED: POTASSIUM CHLOR 10 MEQ/100 ML 10 MEQ/100 ML BAG IV SCH ×2 (07:00→08:00)
[2020-01-13] MEDS ORDERED: LACTATED RINGERS 1,000 ML IV ONE (07:19)
[2020-01-13] MEDS ORDERED: NALOXONE 0.4 MG/ML VIAL IVP PRN (07:25)
[2020-01-13] MEDS ORDERED: MORPHINE 2 MG/ML CARPUJECT IVP PRN (07:25)
[2020-01-13] MEDS ORDERED: HYDROmorphone 0.5 MG/0.5 ML SYRINGE IVP PRN (07:25)
[2020-01-13] MEDS ORDERED: ePHEDrine 50 MG/ML VIAL IVP PRN (07:25)
[2020-01-13] MEDS ORDERED: METOCLOPRAMIDE 10 MG/2 ML VIAL IVP PRN (07:25)
[2020-01-13] MEDS ORDERED: ATROPINE ABBOJECT 1 MG/10 ML SYRINGE IVP PRN (07:25)
[2020-01-13] MEDS ORDERED: ONDANSETRON 4 MG/2 ML VIAL IVP PRN (07:25)
[2020-01-13] MEDS ORDERED: fentaNYL 100 MCG/2 ML VIAL IVP PRN (07:25)
[2020-01-13] MEDS ORDERED: LACTATED RINGERS 1,000 ML IV SCH (08:00)
[2020-01-13] MEDS: GABAPENTIN 300 MG CAPSULE PO SCH ×3 (08:11→21:08)
--- NOTE | 2020-01-13 08:30 | OPERATIVE REPORT ---
DATE OF SERVICE: 01/13/2020 Physician: Jatinder Sosa DDS PREOPERATIVE DIAGNOSIS: Left submandibular, sublingual and buccal space abscess secondary to necrotic teeth #17 and 18. POSTOPERATIVE DIAGNOSIS: Left submandibular, sublingual and buccal space abscess secondary to necrotic teeth #17 and 18. PROCEDURE PERFORMED 1. Extraoral incision and drainage of the left submandibular, sublingual and buccal spaces. 2. Removal of teeth #17 and 18. ANESTHESIA TYPE: General anesthesia via oral endotracheal intubation. ANESTHESIA PROVIDER: Casi Ocasio. DRAINS, PACKS, CATHETERS: 1/4-inch Emery drain was placed in the left submandibular space emerging from the left neck. ESTIMATED BLOOD LOSS: Less than 10 mL COMPLICATIONS: None. INDICATIONS FOR PROCEDURE: This is a 64-year-old male with a 3-week history of swelling of the left face and neck. He presented to the emergency room, where clinical and radiographic examination was consistent with deep space abscess of the left neck secondary to necrotic teeth. It was decided that drainage of the abscess was indicated, along with removal of the offending teeth. The risks, benefits, and alternatives of this plan were discussed with the patient including pain, swelling, bleeding, infection, need for further surgery, poor cosmesis, nerve damage with paralysis of the left side of the face. Adequate time was given to answer all questions, and informed consent was obtained. DESCRIPTION OF PROCEDURE: The patient was brought to the main operating room and placed in a supine position on the operating table. General anesthesia was induced by the anesthesia team, and the airway was secured with an oral endotracheal tube taped to the right side of the face. The patient was prepped and draped in the standard sterile fashion for incision and drainage of a neck abscess. Local anesthesia was achieved with 3 mL of 2% lidocaine with 1:100,000 epinephrine. A formal timeout was executed. A throat pack was placed. Attention was directed to the left neck. A stab incision was made through skin down to the facial layer of the deep cervical fascia. Blunt dissection through this layer was then performed with a curved Chelle and down through the platysma and down to the inferior border of the mandible. At the inferior border of the mandible, blunt dissection was performed to enter the abscess cavity. Large amount of purulence was expressed at this point, and it was cultured and sent for anaerobic and aerobic, Gram stain and culture. It is important to note that also during the intubation, a large amount of purulence was noted in the patient's oropharynx and even down to the larynx. As much of this was removed with suction and irrigation as possible. All aspects of the abscess cavity were explored thoroughly with blunt dissection. The wound was irrigated with copious amounts of sterile saline. Attention was directed intraorally to the left mandible, where teeth #17 and 18 were removed. A crestal incision was made. A buccal full-thickness flap was elevated. A small amount of bone was removed around tooth #17, and both the teeth were removed in routine elevator forceps technique. The site was curetted and irrigated and closed loosely to allow for continued drainage with a 4-0 chromic gut suture. Attention was then directed back to the left neck. A 1/4-inch Emery drain was placed up into the submandibular space. The Emery was secured to the left neck skin with a 2-0 silk suture. The patient's mouth was rinsed free of debris. The oropharynx was suctioned. The throat pack was removed. The face was cleansed and care of the patient was returned to the Anesthesia team. The patient was emerged uneventfully from anesthesia and transferred to the PACU in stable condition. TD: 01/13/2020 07:31 ENEIDA
[2020-01-13] MEDS ORDERED: POTASSIUM CHLORIDE INJ 40 MEQ in SODIUM CHLORIDE 0.9% 500 ML IV SCH (09:00)
[2020-01-13] MEDS ORDERED: POTASSIUM PHOSPHATE 15 MMOL in SODIUM CHLORIDE 0.9% 250 ML IV SCH (09:00)
--- NOTE | 2020-01-13 09:28 | ANESTHESIA POST OP EVALUATION ---
Anesthesia Post Eval - Post Anesthesia Eval Vitals: Last Vital Signs Temp 36.9 C 01/13/20 07:56 Pulse 65 01/13/20 08:26 Resp 17 01/13/20 08:26 BP 178/79 H 01/13/20 08:26 Pulse Ox 91 L 01/13/20 08:26 CV Function Including HR & BP: positive: Stable Pain Control: positive: Satisfactory Nausea & Vomiting: positive: Negative Mental Status: positive: Baseline Respiratory Status: Airway Patent Hydration Status: Satisfactory Anesthesia Complications: positive: None
[2020-01-13] MEDS: NICOTINE 14 MG PATCH TOP SCH (10:54)
[2020-01-13] MEDS: ATORVASTATIN 10 MG TABLET PO SCH (10:54)
[2020-01-13] MEDS: LOSARTAN 50 MG TABLET PO SCH (10:57)
[2020-01-13] MEDS: amLODIPine 5 MG TABLET PO SCH (10:57)
[2020-01-13] MEDS: PROPRANOLOL 10 MG TABLET PO SCH ×2 (10:58→21:07)
--- NOTE | 2020-01-13 11:20 | PROVIDER PROGRESS NOTE ---
Subjective - Prog Note Date Prog Note Date: 01/13/20 Prog Note Time: 11:18 - Subjective Subjective: he is not happy to be here. "I am not a diabetic, I do not do a diabetic diet, why are you people treating me as a diabetic?!" He does not want to stay beyond today. Oral maxillofacial surgery really feels he needs another 24 hours of IV antibiotics. Current Medications - Current Medications Current Medications: Active Medications Amlodipine Besylate (Norvasc) 5 mg PO DAILY [facility] Last Admin: 01/13/20 10:57 Dose: Not Given Documented by: Atorvastatin Calcium (Lipitor) 20 mg PO DAILY [facility] Last Admin: 01/13/20 10:54 Dose: Not Given Documented by: Gabapentin (Neurontin) 300 mg PO TID [facility] Last Admin: 01/13/20 08:11 Dose: Not Given Documented by: Piperacillin Sod/Tazobactam (Sod 4.5 gm/ Sodium Chloride) 100 mls @ 25 mls/hr IV Q8H [facility] Last Infusion: 01/13/20 07:36 Dose: Infused Documented by: Sodium Chloride (Normal Saline 0.9%) 1,000 mls @ 125 mls/hr IV .Q8H [facility] Stop: 01/13/20 16:59 Last Admin: 01/13/20 10:42 Dose: 125 mls/hr Documented by: Potassium Chloride (Potassium Chloride) 10 meq in 100 mls @ 100 mls/hr IV Q1H [facility] Stop: 01/13/20 11:59 Potassium Chloride 40 meq/ (Sodium Chloride) 520 mls @ 125 mls/hr IV ONCE [facility] Stop: 01/13/20 15:00 Last Admin: 01/13/20 10:37 Dose: 125 mls/hr Documented by: Insulin Human Regular (Humulin R) 1 - 9 unit SUBQ Q6HR [facility]; Protocol Last Admin: 01/13/20 06:23 Dose: Not Given Documented by: Losartan Potassium (Cozaar) 50 mg PO DAILY [facility] Last Admin: 01/13/20 10:57 Dose: Not Given Documented by: Morphine Sulfate (Morphine (Carpuject)) 2 mg IVP Q2HR PRN PRN Reason: Pain 8 to 10 Last Admin: 01/13/20 03:58 Dose: 2 mg Documented by: Nicotine (Nicoderm) 1 patch TOP DAILY [facility] Last Admin: 01/13/20 10:54 Dose: Not Given Documented by: Oxycodone HCl (Roxicodone) 5 mg PO Q4HR PRN PRN Reason: Pain 5 to 7 Prochlorperazine Edisylate (Compazine Inj) 10 mg IVP Q6HR PRN PRN Reason: Nausea / Vomiting Propranolol HCl (Inderal) 20 mg PO BID [facility] Last Admin: 01/13/20 10:58 Dose: Not Given Documented by: Sodium Chloride (Normal Saline Flush 0.9%) 10 ml IVP PRN PRN PRN Reason: NEEDED PER PROVIDER ORDERS Last Admin: 01/12/20 14:59 Dose: 10 ml Documented by: Sodium Chloride (Normal Saline Flush 0.9%) 10 ml IVP 0100,0900,1700 [facility] Last Admin: 01/13/20 10:56 Dose: Not Given Documented by: Trazodone HCl (Desyrel) 100 mg PO HS [facility] Last Admin: 01/12/20 21:35 Dose: 100 mg Documented by: Atorvastatin [Lipitor] 20 mg PO DAILY 01/12/20 Chlorthalidone 25 mg PO DAILY 01/12/20 Gabapentin 300 mg PO TID 01/12/20 Losartan [Cozaar] 50 mg PO DAILY 01/12/20 Omeprazole 20 mg PO DAILY 01/12/20 Propranolol HCl 20 mg PO BID 01/12/20 metFORMIN [Glucophage] 850 mg PO TIDWM 01/12/20 traZODone [Desyrel] 100 mg PO HS 01/12/20 Objective - Vital Signs/Intake & Output Reviewed Vital Signs: Yes Vital Signs: Vital Signs x48h Temp Pulse Pulse Resp BP BP Pulse Ox 01/13/20 10:26 36.7 C 74 16 173/64 H 95 01/13/20 09:30 36.7 C 73 16 170/68 H 95 01/13/20 08:26 36.9 C 65 17 178/79 H 91 L 01/13/20 07:56 36.9 C 63 16 196/71 H 93 01/13/20 07:42 36.5 C 64 18 190/77 H 95 01/13/20 07:35 66 13 185/73 H 99 01/13/20 07:30 65 13 195/74 H 97 01/13/20 07:25 67 15 197/89 H 100 01/13/20 07:20 70 18 196/88 H 100 01/13/20 07:17 35.8 C L 73 14 206/81 H 97 01/13/20 04:08 36.9 C 64 18 173/67 H 94 Intake & Output: Intake & Output 01/10/20 01/11/20 01/12/20 01/13/20 23:59 23:59 23:59 23:59 Intake Total 835 2300.00 Output Total 0 Balance 835 2300.00 - Objective General Appearance: positive: Moderate distress (from jaw pain, bandaged left neck and jaw, speech slightly mumbled) Eyes Bilateral: positive: PERRL Neck: positive: No JVD, Trachea midline Respiratory: positive: No respiratory distress. negative: Wheezes, Rales, Rhonchi Cardiovascular: positive: Regular rate & rhythm. negative: Gallop/S4, Friction rub Abdomen: positive: Non-tender, No organomegaly, Nml bowel sounds, No distention Skin: positive: Warm, Dry. negative: Diaphoresis Extremities: positive: Non-tender, No pedal edema Neurologic/Psychiatric: positive: Oriented x3, CN's nml (2-12). negative: Motor nml (Tremors, bilateral upper extremity resting and with intention), Sensation nml (Severe severe peripheral neuropathy) - Lab Results Fish Bones: 01/13/20 05:30 01/13/20 05:30 Other Labs: Lab Results x24hrs 01/13/20 01/13/20 01/13/20 Range/Units 05:30 05:30 00:10 WBC 14.8 H (4.8-10.8) x10^3/uL RBC 4.60 L (4.70-6.10) 10^6/uL Hgb 13.0 L (14.0-18.0) g/dL Hct 38.5 L (42.0-52.0) % MCV 83.7 (80.0-94.0) fL MCH 28.3 (27.0-31.0) pg MCHC 33.8 (32.0-36.0) g/dL RDW 12.5 (12.0-15.0) % Plt Count 430 (130-450) 10^3/uL MPV 9.4 (7.4-11.4) fL Neut # (Auto) 12.4 H (1.5-6.6) 10^3/uL Lymph # (Auto) 1.3 L (1.5-3.5) 10^3/uL Surry # (Auto) 0.9 (0.0-1.0) 10^3/uL Eos # (Auto) 0.0 (0.0-0.7) 10^3/uL Baso # (Auto) 0.0 (0.0-0.1) 10^3/uL Absolute Nucleated RBC 0.00 x10^3/uL Band Neuts % (Manual) Abnorm Lymph % (Manual) Nucleated RBC % 0.0 /100WBC Neutrophils # (Manual) Lymphocytes # (Manual) Monocytes # (Manual) Eosinophils # (Manual) Basophils # (Manual) Differential Comment Platelet Estimate (NORMAL) Platelet Morphology (NORMAL) RBC Morph Micro Appear (NORMAL) Sodium 136 (135-145) mmol/L Potassium 2.8 L (3.5-5.0) mmol/L Chloride 98 L (101-111) mmol/L Carbon Dioxide 24 (21-32) mmol/L Anion Gap 14.0 H (6-13) BUN 19 (6-20) mg/dL Creatinine 0.9 (0.6-1.2) mg/dL Estimated GFR (MDRD) 85 L (>89) Glucose 146 H (70-100) mg/dL POC Whole Bld Glucose 169 H (70 - 100) mg/dL Calcium 7.8 L (8.5-10.3) mg/dL Phosphorus 1.9 L (2.5-4.6) mg/dL Magnesium 1.8 (1.7-2.8) mg/dL Total Bilirubin (0.2-1.0) mg/dL AST (10-42) IU/L ALT (10-60) IU/L Alkaline Phosphatase (42-121) IU/L Troponin I High Sens (2.3-19.7) ng/L Total Protein (6.7-8.2) g/dL Albumin (3.2-5.5) g/dL Globulin (2.1-4.2) g/dL Albumin/Globulin Ratio (1.0-2.2) Lipase (22-51) U/L 1001/12/20 01/12/20 Range/Units 19:56 18:18 18:18 WBC (4.8-10.8) x10^3/uL RBC (4.70-6.10) 10^6/uL Hgb (14.0-18.0) g/dL Hct (42.0-52.0) % MCV (80.0-94.0) fL MCH (27.0-31.0) pg MCHC (32.0-36.0) g/dL RDW (12.0-15.0) % Plt Count (130-450) 10^3/uL MPV (7.4-11.4) fL Neut # (Auto) (1.5-6.6) 10^3/uL Lymph # (Auto) (1.5-3.5) 10^3/uL Surry # (Auto) (0.0-1.0) 10^3/uL Eos # (Auto) (0.0-0.7) 10^3/uL Baso # (Auto) (0.0-0.1) 10^3/uL Absolute Nucleated RBC x10^3/uL Band Neuts % (Manual) Abnorm Lymph % (Manual) Nucleated RBC % /100WBC Neutrophils # (Manual) Lymphocytes # (Manual) Monocytes # (Manual) Eosinophils # (Manual) Basophils # (Manual) Differential Comment Platelet Estimate (NORMAL) Platelet Morphology (NORMAL) RBC Morph Micro Appear (NORMAL) Sodium (135-145) mmol/L Potassium 2.8 L (3.5-5.0) mmol/L Chloride (101-111) mmol/L Carbon Dioxide (21-32) mmol/L Anion Gap (6-13) BUN (6-20) mg/dL Creatinine (0.6-1.2) mg/dL Estimated GFR (MDRD) (>89) Glucose (70-100) mg/dL POC Whole Bld Glucose 157 H (70 - 100) mg/dL Calcium (8.5-10.3) mg/dL Phosphorus (2.5-4.6) mg/dL Magnesium 1.2 L (1.7-2.8) mg/dL Total Bilirubin (0.2-1.0) mg/dL AST (10-42) IU/L ALT (10-60) IU/L Alkaline Phosphatase (42-121) IU/L Troponin I High Sens (2.3-19.7) ng/L Total Protein (6.7-8.2) g/dL Albumin (3.2-5.5) g/dL Globulin (2.1-4.2) g/dL Albumin/Globulin Ratio (1.0-2.2) Lipase (22-51) U/L 01/12/20 01/12/20 01/12/20 Range/Units 11:55 11:55 11:55 WBC (4.8-10.8) x10^3/uL RBC (4.70-6.10) 10^6/uL Hgb (14.0-18.0) g/dL Hct (42.0-52.0) % MCV (80.0-94.0) fL MCH (27.0-31.0) pg MCHC (32.0-36.0) g/dL RDW (12.0-15.0) % Plt Count (130-450) 10^3/uL MPV (7.4-11.4) fL Neut # (Auto) (1.5-6.6) 10^3/uL Lymph # (Auto) (1.5-3.5) 10^3/uL Surry # (Auto) (0.0-1.0) 10^3/uL Eos # (Auto) (0.0-0.7) 10^3/uL Baso # (Auto) (0.0-0.1) 10^3/uL Absolute Nucleated RBC x10^3/uL Band Neuts % (Manual) Abnorm Lymph % (Manual) Nucleated RBC % /100WBC Neutrophils # (Manual) Lymphocytes # (Manual) Monocytes # (Manual) Eosinophils # (Manual) Basophils # (Manual) Differential Comment Platelet Estimate (NORMAL) Platelet Morphology (NORMAL) RBC Morph Micro Appear (NORMAL) Sodium 137 (135-145) mmol/L Potassium 2.5 L* (3.5-5.0) mmol/L Chloride 91 L (101-111) mmol/L Carbon Dioxide 25 (21-32) mmol/L Anion Gap 21.0 H (6-13) BUN 19 (6-20) mg/dL Creatinine 1.1 (0.6-1.2) mg/dL Estimated GFR (MDRD) 67 L (>89) Glucose 141 H (70-100) mg/dL POC Whole Bld Glucose (70 - 100) mg/dL Calcium 7.9 L (8.5-10.3) mg/dL Phosphorus 2.8 (2.5-4.6) mg/dL Magnesium 0.6 L* (1.7-2.8) mg/dL Total Bilirubin 1.1 H (0.2-1.0) mg/dL AST 13 (10-42) IU/L ALT 13 (10-60) IU/L Alkaline Phosphatase 65 (42-121) IU/L Troponin I High Sens 8.8 (2.3-19.7) ng/L Total Protein 8.4 H (6.7-8.2) g/dL Albumin 3.6 (3.2-5.5) g/dL Globulin 4.8 H (2.1-4.2) g/dL Albumin/Globulin Ratio 0.8 L (1.0-2.2) Lipase 22 (22-51) U/L 10/15/20 Range/Units 11:55 WBC 14.9 H (4.8-10.8) x10^3/uL RBC 4.98 (4.70-6.10) 10^6/uL Hgb 14.4 (14.0-18.0) g/dL Hct 41.5 L (42.0-52.0) % MCV 83.3 (80.0-94.0) fL MCH 28.9 (27.0-31.0) pg MCHC 34.7 (32.0-36.0) g/dL RDW 12.7 (12.0-15.0) % Plt Count 455 H (130-450) 10^3/uL MPV 9.7 (7.4-11.4) fL Neut # (Auto) 11.1 H (1.5-6.6) 10^3/uL Lymph # (Auto) 1.8 (1.5-3.5) 10^3/uL Surry # (Auto) 1.6 H (0.0-1.0) 10^3/uL Eos # (Auto) 0.2 (0.0-0.7) 10^3/uL Baso # (Auto) 0.1 (0.0-0.1) 10^3/uL Absolute Nucleated RBC 0.00 x10^3/uL Band Neuts % (Manual) Not Reportable Abnorm Lymph % (Manual) Not Reportable Nucleated RBC % 0.0 /100WBC Neutrophils # (Manual) Not Reportable Lymphocytes # (Manual) Not Reportable Monocytes # (Manual) Not Reportable Eosinophils # (Manual) Not Reportable Basophils # (Manual) Not Reportable Differential Comment MANUAL=AUTO DIFF Platelet Estimate NORMAL (130-450,000) (NORMAL) Platelet Morphology NORMAL APPEARANCE (NORMAL) RBC Morph Micro Appear NORMAL APPEARANCE (NORMAL) Sodium (135-145) mmol/L Potassium (3.5-5.0) mmol/L Chloride (101-111) mmol/L Carbon Dioxide (21-32) mmol/L Anion Gap (6-13) BUN (6-20) mg/dL Creatinine (0.6-1.2) mg/dL Estimated GFR (MDRD) (>89) Glucose (70-100) mg/dL POC Whole Bld Glucose (70 - 100) mg/dL Calcium (8.5-10.3) mg/dL Phosphorus (2.5-4.6) mg/dL Magnesium (1.7-2.8) mg/dL Total Bilirubin (0.2-1.0) mg/dL AST (10-42) IU/L ALT (10-60) IU/L Alkaline Phosphatase (42-121) IU/L Troponin I High Sens (2.3-19.7) ng/L Total Protein (6.7-8.2) g/dL Albumin (3.2-5.5) g/dL Globulin (2.1-4.2) g/dL Albumin/Globulin Ratio (1.0-2.2) Lipase (22-51) U/L ABX Reporting Has patient been on IV antibiotics over the past 48 hours?: Yes Assessment/Plan - Problem List (1) Submandibular space infection Impression: Considering this patient is immunocompromised with diabetes, recommendations are that he can be on cefepime plus metronidazole or imipenem or meropenem or Zosyn. I have chosen Zosyn. Day #2/[address] Sosa has recommended dc tomorr ow with switch to oral abx. He will see the patient in fu. Today the patient is stating he may leave AMA. We have explained why he should stay and why he is on diabetic diet, but he is angry and states "he didn't plan on stayng this long and I hate hospitals." WBC is still elevated. Plan: Change to inpatient status. DC in am if he stays. We have verified w [facility] that he is not service connected and that he can stay here for tx. s/p I&D this morning. Zosyn Daily CBC Tylenol for mild pain, short acting opiate for moderate pain, morphine for severe pain. Zofran written for but his QT interval is very long. As such switched to Compazine. (2) Controlled type 2 diabetes mellitus with complication of peripheral neuropathy Conclusion/Plan: 01/11: 157 01/12: 169, 146 Sliding scale insulin. We will hold off on metformin while he is here. Diabetic diet. (3) Electrolyte disturbance Conclusion/Plan: Hypokalemia, hypomagnesemia. He is received 10 mEq IV potassium in the ER with 20 mEq p.o. He is also received 2 g of magnesium. He got to [facility] and needed another 40 mEq rider of potassium and another 2 g of magnesium. This morning his magnesium is normal. He continues to need potassium supplementation and we will give that for as long as he lets us. (4) HTN (hypertension) Conclusion/Plan: Resume Cozaar, propranolol in the morning. Hold off on chlorthalidone until he is eating and drinking normally. The hospitalist from last night added norvasc bc he is not controlled but he is refusing to take any of his meds. Qualifiers: Hypertension type: essential hypertension Qualified Code(s): I10 - Essential (primary) hypertension (5) Tremor observed on examination Conclusion/Plan: He says that there is a possibility of Parkinson's. But he is never really talked about it with [facility]. He has had this for several decades now. Noticing that he is having more problems with gait ataxia and freezing movements. Plan: I will find out where to send this current episode of care records to the [facility]. I have reached out to the [facility]. Left my name and number for them to call me so I can fax them a note. (6) Nicotine withdrawal. After an explosion in anger, with a raised voice, and use of curse words, he is able to express that he is dying for a cigarette. I had gone in there because nursing asked me to see him because he was refusing medications, and leaving AMA. He just wants to get out of here so he can smoke. He cannot believe how fiercely agitated it is making him. And he apologizes. He is also terrified of getting Covid here. He keeps on seeking reassurance that no one here has Covid. Plan: Nicotine patch to 21 mg. Ativan 0.5 mg IV every 2 hours as needed I have provided reassurance, not a guarantee, that no one here has Covid and that he will be out of here tomorrow morning. But then he explains that "you could admit someone tonight". And I explained to him again there is no guarantee but our hospital and our nursing staff will keep him as safe as much as possible.
[2020-01-13] MEDS ORDERED: KETOROLAC 30 MG/ML VIAL IVP PRN (11:43)
[2020-01-13] MEDS ORDERED: LORazepam 2 MG/ML VIAL IVP PRN (11:43)
[2020-01-13] MEDS ORDERED: HYDROcod/ACETAM 5/325 MG TABLET PO PRN (12:09)
[2020-01-13] MEDS: NICOTINE 21 MG PATCH TOP SCH (15:22)
[2020-01-13] MEDS: INSULIN ASPART 300 UNIT/3 ML PEN SUBQ SCH ×2 (17:08→21:06)
[2020-01-13] MEDS: traZODone 50 MG TABLET PO SCH (21:07)
[2020-01-14] MEDS: SODIUM CHLORIDE FLUSH 0.9% 10 ML SYRINGE IVP SCH (03:13)
[2020-01-14] MEDS: PIPERACILLIN/TAZOBACTAM 4.5 GM in SODIUM CHLORIDE 0.9% MINIBAG 100 ML IV SCH (03:13)
[2020-01-14] MEDS: GABAPENTIN 300 MG CAPSULE PO SCH (05:11)
[2020-01-14] MEDS ORDERED: LABETALOL 20 MG/4 ML SYRINGE IVP ONE (05:25)
[2020-01-14 06:00] LABS: BASOPHILS # (AUTO) 0.1 10^3/uL (0.0-0.1); BASOPHILS % (AUTO) 0.9 %; EOSINOPHILS # (AUTO) 0.1 10^3/uL (0.0-0.7); EOSINOPHILS % (AUTO) 1.2 %; HGB - HEMOGLOBIN 12.9 g/dL (14.0-18.0); LYMPHOCYTES # (AUTO) 2.4 10^3/uL (1.5-3.5); LYMPHOCYTES % (AUTO) 21.1 %; MEAN CORPUSCULAR HEMOGLOBIN 28.5 pg (27.0-31.0); MEAN CORPUSCULAR HGB CONC 33.6 g/dL (32.0-36.0); MEAN CORPUSCULAR VOLUME 84.8 fL (80.0-94.0); MEAN PLATELET VOLUME 9.6 fL (7.4-11.4); MONOCYTES # (AUTO) 1.2 10^3/uL (0.0-1.0); MONOCYTES % (AUTO) 10.1 %; NEUTROPHILS # (AUTO) 7.6 10^3/uL (1.5-6.6); NEUTROPHILS % (AUTO) 66.1 %; PLT - PLATELET COUNT 469 10^3/uL (130-450); RED BLOOD COUNT 4.53 10^6/uL (4.70-6.10); RED CELL DISTRIBUTION WIDTH 12.7 % (12.0-15.0); WHITE BLOOD COUNT 11.5 x10^3/uL (4.8-10.8)
[2020-01-14 06:11] LABS: CALCIUM 7.9 mg/dL (8.5-10.3); CREATININE 0.9 mg/dL (0.6-1.2); MAGNESIUM 1.9 mg/dL (1.7-2.8)
[2020-01-14] MEDS ORDERED: POTASSIUM CHLORIDE 20 MEQ TABLET PO ONE (07:00)
--- NOTE | 2020-01-14 07:32 | Discharge Plan ---
Discharge Plan Problem Reviewed?: Yes Disposition: Home, Self Care Condition: Fair Prescriptions: Amox/Clav 875/125 [Augmentin] 1 each PO Q12H #14 tablet Magnesium 250 mg PO DAILY #30 tablet Potassium Chloride 40 meq PO DAILY #60 tablet.er Diet: Diabetic Activity Restrictions: Activity as Tolerated Shower Restrictions: No Driving Restrictions: No Health Concerns: You presented to our emergency room after being sent there by the [facility] dentist that you were seen. You have had an abscess in your tooth and has been trying to get care for close to 3 weeks. You were seen in the emergency once and were put on clindamycin antibiotic. You then saw the dentist and the dentist said you needed to come back because the abscess was not better. In our emergency room a CAT scan showed a significant abscess spreading from the tooth infection. The abscess (which is a collection of infection and pus) was underneath your jawline into your neck muscles. Because you are a diabetic this is considered a very urgent critical condition where the infection can spread like wildfire. You were placed on IV antibiotics. Oral maxillofacial surgery saw you and did an incision and debridement to deroof the pocket of pus and drainage. He recommended 2 days of IV antibiotic therapy. You really did not want to stay here. You have commented that it was very hard for you to be here because of nicotine withdrawal and not liking hospitals. While here, unfortunately, you did not take your medications for blood pressure. Your blood pressure was consistently high in the 180s systolic. Normal blood pressure in a diabetic is supposed to be 1 20-1 30 systolic. Because you also smoke, you must realize that you are a tremendous risk for stroke, heart attack, or loss of limb because of these risk factors. There is also risk of blindness from uncontrolled diabetes. You are now ready to go home. We are asking you to please make sure you take your blood pressure [facility] Plan of Treatment: 1. Please see the oral maxillofacial surgeon in the next week for follow-up of the abscess and to make sure that it is healing. His name is Jatinder Sosa, [phone]. 2. Keep the wound clean and dry. Change the bandage when it gets wet. 3. Please take antibiotics for the next 7 days. The surgeon has asked you to take Augmentin 875 mg twice a day. The prescription was e-scribed to [facility]. 4. Because Augmentin can give you diarrhea, please take [id number] probiotic capsules to help with bowel health and Lomotil as needed. 5. Please see the [facility] in follow-up. They need to know that your blood pressure is very high and may need to negotiate with you with you how to better control it. 6. Please stop smoking. 7. Your potassium and magnesium are consistently low. So we are sending you home with a magnesium prescription and potassium prescription to take at home. Those will only be for a month. So please make sure you see your primary care provider for them to check your potassium and represcribed potassium. That is if you need it. 8. You have consistently felt that pain medicine is too sedating and did not want to take it while here. As such we recommend Tylenol tablets, 325 mg, 2 tablets every 6 hours as needed. Do not exceed 10 tablets a day. It can be toxic to your liver. You can also take [id number] ibuprofen, 2 tablets 4 times a day as needed as well. Care Goals: To have the infection go away without any further need for surgery. To have better control of your medical problems to reduce your risk down the road. Assessment: Patient understands express care goals but may not agree with them. No Smoking: If you smoke, Please STOP! Call for help. Follow-up with: Jatinder Sosa DDS [Provider Admit Priv/Credential] - MATTHEW TERRY MD [Physician No Access] -
[2020-01-14] MEDS: INSULIN ASPART 300 UNIT/3 ML PEN SUBQ SCH (07:40)
[2020-01-14] MEDS ORDERED: NEUTRA-PHOS 250 MG TABLET PO ONE (08:00)
[2020-01-14] MEDS: amLODIPine 5 MG TABLET PO SCH (08:45)
[2020-01-14] MEDS: PROPRANOLOL 10 MG TABLET PO SCH (08:45)
[2020-01-14] MEDS: NICOTINE 21 MG PATCH TOP SCH (08:45)
[2020-01-14] MEDS: ATORVASTATIN 10 MG TABLET PO SCH (08:45)
[2020-01-14] MEDS: LOSARTAN 50 MG TABLET PO SCH (08:45)
[2020-01-14 09:19] VITALS: BP 173/81
[2020-01-14 13:45] LABS: HEMOGLOBIN A1c% 6.5 % (4.27-6.07)
--- NOTE | 2020-01-14 15:45 | DISCHARGE SUMMARY ---
"Discharge Summary Admit Date: 01/12/20 Discharge Date: 01/14/20 Code Status: Attempt Resuscitation Condition at Discharge: Fair Discharge Disposition: 01 Home, Self Care - DIAGNOSES Discharge Diagnoses with Status of Each Condition: 1. Submandibular space infection 2. Type 2 diabetes mellitus with peripheral neuropathy, not on long-term use of insulin 3. Severe hypokalemia and hypomagnesemia 4. Hypertension 5. Tremor on examination 6. Nicotine withdrawal 7. Preoperative evaluation - HPI History of Present Illness: 64-year-old gentleman who has diabetes mellitus, hypertension and presented to the emergency room January 08 with tooth pain. The left lower premolar region, and was causing some swelling of the gingiva, and soft tissues of the face in t hat area. It really hurts to chew, and it was pain that was radiating to the left ear. He has been trying to get an appointment with [facility] and there have been no openings. Dr. Claudio sent him home with antibiotics/clindamycin and to be seen at [facility]. They did finally see him at [facility], but the dental abscess was so severe, they sent him back to the emergency room. The pain is getting wo rse. The swelling is getting worse. There is heat and trismus associated with it in the jaw. But there is no nausea, vomiting. No fever, chills. He was seen in the emergency room with a temperature of 36.6. Heart rate 96. Blood pressure 182/83. 16 respiration and 98% saturation on room air. He has dental decay of the left lower posterior molar that was decayed to the gumline. No soft tissue swelling at the roof of the mouth or the floor of the mouth. The neck was supple. He had swelling of the left lateral neck, below the angle of the mandible. Also had swelling above the jawline to just below the zygomatic arch. Painful swallowing but he was able to do it. White cell count was 14.9. CT neck/soft tissue showed phlegmonous changes in the left-sided mandibular space with adjacent left mandibular teeth demonstrating caries and periodontal disease. No organized rim-enhancing fluid collection at this time. Dr. Jatinder Sosa was consulted. He is oral maxillofacial surgery. He would like the patient placed in observation under our care. He will see the patient in consultation. - Past Medical History Cardiovascular: reports: Hypertension, High cholesterol Respiratory: reports: None Neuro: reports: Peripheral neuropathy (Severe from mid shins down to feet), Tremors (With masked facies, and frozen gait) Endocrine/Autoimmune: reports: Type 2 diabetes (Gets A1c done once a year. He is about due for one. Cannot remember his last one. Does not check his sugars at home.) GI: reports: None : reports: None HEENT: reports: Other (Previous history of facial fractures, jaws being wired and cannot open up his mouth very much) Psych: reports: Anxiety, Claustrophobia Derm: reports: None MRSA Hx?: No Other Past Medical History: diabetic neuropathy - Past Surgical History HEENT: reports: Other (Treatment of facial fractures) - CONSULTS | PROCEDURES Procedures: 1. Extraoral incision and drainage of left submandibular, sublingual, and buccal spaces. 2. Removal of teeth numbers 17 and 18. 3. Soft tissue neck CT with carious lesions and periapical lucencies of the left mandibular first and second molars. Reduction throughout the lingual cortex and inferior mandibular cortex adjacent to the second molar into the left submandibular space. Masslike hypodense phlegmonous changes in the left seventh interspace which measures approximately 3 x 6 x 4 0.3 cm x 5.5 cm. Not organized. May be not an abscess. There is mass-effect on the adjacent vasculature and to a lesser degree on the floor of the mouth musculature. Mild mass-effect also present on the submandibular gland. - HOSPITAL COURSE Hospital Course: The patient was initially placed in observation. However once the oral maxillofacial surgeon saw him in consultation, and reviewed the CT, he felt that the patient needed to go to the OR. And would need IV antibiotics for minimum of 48 hours. As such the patient was changed from observation status to inpatient status. The patient was very unhappy to be here more than 24 hours. He would use a loud voice, occasionally use curse words and has frustration at being here. When I finally got him able to communicate what his real problem was, he confided that he is terrified of hospitals. Cannot stand being them. Just walking in the door makes him nauseated. And he is also going through terrible nicotine withdrawal from cigarettes. As such she received nicotine patch and Ativan in addition to IV antibiotic in the form of Zosyn. After surgery, the patient's pain was controlled. He preferred not to use any opiates. He has significant hypokalemia and hypomagnesemia. Requiring multiple potassium riders and magnesium riders. Even on the day of discharge potassium was 2.8 and he is sent home with potassium to take on a daily basis. During his stay A1c was 6.5%. He was managed with sliding-scale insulin. He states that he does not really consider himself a diabetic and does not follow a diabetic diet at home. We also found it difficult to get him to take his medications of losartan and propranolol for blood pressure. When we explained to him that his systolic is 180 or more he states that his blood pressure is frequently at that at home and that he is not concerned, why should we. I did explain and try and educate about the risk of stroke, SC, peripheral vascular disease, blindness, kidney failure when you combined together his blood pressure, smoking, and diabetes. I have asked him to follow-up with the [facility] in [place] where he sees a primary care provider. Please do that in the next 1 to 2 weeks. I have also asked him to follow-up with oral maxillofacial surgery on Thursday morning. The surgeon is asked that the patient be discharged on Augmentin 875 mg twice daily. I have also explained to the patient take some probiotics and Lomotil as needed. At discharge temperature was 36.9. Pulse was 86. Blood pressure 173/81. Earlier this morning he was as high as 200/79. Respirations were 22 and he was 96% on room air. He is a 6 foot 4 inch white male. 104.5 kg. Disheveled, unsh aven. The redness and swelling of his left jaw have improved since admission. Wound is covered in Kerlix. He is asked to keep this clean and dry. Change it as necessary when he gets dirty. He states that most likely he will try and keep it intact until he sees the surgeon on Thursday. Lungs are clear to auscultation and percussion without any increased respiratory effort. He is ambulating in his room and getting out of bed without any difficulty or ataxia.However he does have resting bilateral tremors as well as tremors with intention. No cogwheel rigidity. He states that lately he is getting frozen gait. Greater than 30 minutes was spent coordinating discharge. Speaking to Dr. Hector rodriguez Instructing the patient. I had left a message with the [facility] in [place] on January 11. As of today I have still not received a phone call from his primary care provider. I had hoped to receive a fax number to send his discharge summary.I would like him to be referred to neurology by his primary care provider for evaluation of his tremor and gait. - ALLERGIES Allergies/Adverse Reactions: Allergies Allergy/AdvReac Type Severity Reaction Status Date / Time No Known Drug Allergies Allergy Verified 01/12/20 11:16 - MEDICATIONS Home Medications: Ambulatory Orders Medication Instructions Recorded Confirmed Atorvastatin [Lipitor] 20 mg PO DAILY 01/12/20 01/12/20 Chlorthalidone 25 mg PO DAILY 01/12/20 01/12/20 Gabapentin 300 mg PO TID 01/12/20 01/12/20 Losartan [Cozaar] 50 mg PO DAILY 01/12/20 01/12/20 Omeprazole 20 mg PO DAILY 01/12/20 01/12/20 Propranolol HCl 20 mg PO BID 01/12/20 01/12/20 metFORMIN [Glucophage] 850 mg PO TIDWM 01/12/20 01/12/20 traZODone [Desyrel] 100 mg PO HS 01/12/20 01/12/20 Amox/Clav 875/125 [Augmentin] 1 each PO Q12H #14 tablet 01/14/20 Magnesium 250 mg PO DAILY #30 tablet 01/14/20 Potassium Chloride 40 meq PO DAILY #60 tablet.er 01/14/20 - LABS Result Diagrams: 01/14/20 05:30 01/14/20 05:30"
== END 2020-01-14 09:05 | disposition home or self-care (01) | DRG 137 ==
LOC: ED 11:08 → MS2 14:20 → OBSVTOIN 01-13 11:07
PROVIDERS: ADMIT Specialist; ATTEND Specialist
PROC: 0CDXXZ1 Extraction of Lower Tooth, Multiple, External Approach (ICD-10-PCS; 2020-01-13)
PROC: 0J910ZZ Drainage of Face Subcutaneous Tissue and Fascia, Open Approach (ICD-10-PCS; principal; 2020-01-13 06:00)
DX: M27.2 Inflammatory conditions of jaws (principal); F17.213 Nicotine dependence, cigarettes, with withdrawal; K04.1 Necrosis of pulp; E11.42 Type 2 diabetes mellitus with diabetic polyneuropathy; I10 Essential (primary) hypertension; E87.6 Hypokalemia; E83.42 Hypomagnesemia; R25.1 Tremor, unspecified; F41.9 Anxiety disorder, unspecified
CPT/HCPCS: 36415; 70491; 80048; 80053; 83036; 83690; 83735; 84100; 84132; 84484; 85025; 87070; 87205; 93005; 96365; 96366; 96367; 96368; 96375; 96376; 99285; A9270; G0378; J0330; J1170; J7120; Q9967

== ENCOUNTER 2020-02-16 09:09 | Emergency (ER) | payer OTHER ==
[2020-02-16] MEDS ORDERED: MAGNESIUM SULFATE 2 GRAM 2 GM/50 ML BAG IV ONE (09:11)
[2020-02-16] MEDS ORDERED: POTASSIUM CHLOR 10 MEQ/100 ML 10 MEQ/100 ML BAG IV STA (09:45)
--- NOTE | 2020-02-16 09:49 | ED Physician Documentation ---
History of Present Illness - Stated complaint Stated Complaint: CRITICAL LAB SENT BY - Chief complaint Chief Complaint: General - History obtained from History obtained from: Patient - Additonal information Additional information: 64-year-old gentleman was admitted here with a dental infection a month ago. At that time he was noted to be hypomagnesemic and was sent home on magnesium supplementation. The pills were too large and he was unable to tolerate them. He has chronic diarrhea and was also continued on his chlorthalidone. He had labs done at the [facility] yesterday which were notable for magnesium of 0.9 and he was referred here for further evaluation and treatment. He has no acute complaints. Denies pains. Says for a long time he is had dizziness and poor gait and plans to see a neurologist for same. Review of Systems Constitutional: denies: Fever, Chills Cardiac: denies: Chest pain / pressure, Palpitations Respiratory: denies: Dyspnea, Cough PD PAST MEDICAL HISTORY - Past Medical History Cardiovascular: Hypertension, High cholesterol Respiratory: None Neuro: Peripheral neuropathy, Tremors Endocrine/Autoimmune: Type 2 diabetes GI: None : None HEENT: Other Psych: Anxiety, Claustrophobia Musculoskeletal: Other Derm: None Other Past Medical History: hx of post dental abscess. tonsillectomy childhood. htn,dm - Past Surgical History HEENT: Other - Present Medications Home Medications: Ambulatory Orders Medication Instructions Recorded Confirmed Atorvastatin [Lipitor] 20 mg PO DAILY 01/12/20 02/16/20 Chlorthalidone 25 mg PO DAILY 01/12/20 02/16/20 Gabapentin 300 mg PO TID 01/12/20 02/16/20 Losartan [Cozaar] 50 mg PO DAILY 01/12/20 02/16/20 Omeprazole 20 mg PO DAILY 01/12/20 02/16/20 Propranolol HCl 20 mg PO BID 01/12/20 02/16/20 metFORMIN [Glucophage] 850 mg PO TIDWM 01/12/20 02/16/20 traZODone [Desyrel] 100 mg PO HS 01/12/20 02/16/20 Potassium Chloride 40 meq PO DAILY #60 tablet.er 01/14/20 02/16/20 Potassium Bicarb/Mag Combo 21 5.7 gm PO BID 30 Days #60 02/16/20 [Magnesium Fizz-Plus Powder] powd.effer Walker [Ultra-Light Rollator] 1 each ONCE #1 each 02/16/20 amLODIPine [Norvasc] 5 mg PO DAILY #60 tablet 02/16/20 - Allergies Allergies/Adverse Reactions: Allergies Allergy/AdvReac Type Severity Reaction Status Date / Time No Known Drug Allergies Allergy Verified 02/16/20 09:37 - Social History Does the pt smoke?: Yes Smoking Status: Current every day smoker - POLST Patient has POLST: No POLST Status: Full Code PD ED PE NORMAL - Vitals Vital signs reviewed: Yes - General General: Alert and oriented X 3, No acute distress - Derm Derm: Normal color, Warm and dry - Extremities Extremities: No edema, No calf tenderness / cord - Neuro Neuro: Alert and oriented X 3, Normal speech - Psych Psych: Normal mood, Normal affect Results - Vitals Vitals: Vital Signs - 24 hr 02/16/20 02/16/20 02/16/20 09:20 10:12 10:30 Temperature 36.8 C Heart Rate 89 82 74 Respiratory 18 15 16 Rate Blood Pressure 210/107 H 155/94 H 160/90 H O2 Saturation 100 99 97 02/16/20 11:18 Temperature Heart Rate Respiratory Rate Blood Pressure 155/83 H O2 Saturation Oxygen O2 Source Room air - Labs Labs: Laboratory Tests 02/16/20 09:46 Sodium 137 Potassium 2.7 L Chloride 92 L Carbon Dioxide 29 Anion Gap 16.0 H BUN 13 Creatinine 0.9 Estimated GFR (MDRD) 85 L Glucose 162 H Calcium 8.7 Magnesium 0.9 L* PD MEDICAL DECISION MAKING - ED course ED course: 64-year-old gentleman with hypokalemia and hypomagnesemia. His numbers are actually fairly stable since his admission here. Probably multifactorial but mostly due to chlorthalidone which she is advised to stop. We are prescribing amlodipine instead. He also was not able to take supplementation as was previously prescribed because of the pill size and he was prescribed a crystalline formula that can be dissolved in water. Departure - Departure Disposition: 01 Home, Self Care Clinical Impression: Hypomagnesemia, Hypokalemia Condition: Good Record reviewed to determine appropriate education?: Yes Instructions: Hypokalemia Dc Prescriptions: Potassium Bicarb/Mag Combo 21 [Magnesium Fizz-Plus Powder] 5.7 gm PO BID 30 Days #60 powd.effer amLODIPine [Norvasc] 5 mg PO DAILY #60 tablet Walker [Ultra-Light Rollator] 1 each ONCE #1 each Comments: Stop the chlorthalidone and use lisinopril instead for blood pressure. Prescribing the granulated form of magnesium and do a recheck with your physician for repeat labs and blood pressure check in 1 week. Discharge Date/Time: 02/16/20 11:18
[2020-02-16 10:10] LABS: CALCIUM 8.7 mg/dL (8.5-10.3); CREATININE 0.9 mg/dL (0.6-1.2)
[2020-02-16 10:11] LABS: MAGNESIUM 0.9 mg/dL (1.7-2.8)
[2020-02-16 11:19] VITALS: BP 155/83
== END 2020-02-16 11:18 | disposition home or self-care (01) ==
LOC: ED 09:09
DX: E83.42 Hypomagnesemia (principal); E87.6 Hypokalemia; T50.2X5A Adverse effect of carbonic-anhydrase inhibitors, benzothiadiazides and other diuretics, initial encounter; E11.42 Type 2 diabetes mellitus with diabetic polyneuropathy; Z79.84 Long term (current) use of oral hypoglycemic drugs; I10 Essential (primary) hypertension; R26.9 Unspecified abnormalities of gait and mobility; F17.200 Nicotine dependence, unspecified, uncomplicated
CPT/HCPCS: 36415; 80048; 83735; 96365; 96368; 99283

== ENCOUNTER 2021-04-02 07:50 | Outpatient (CLI) | payer OTHER ==
--- NOTE | 2021-04-02 17:06 | Ultrasound Report ---
PROCEDURE: Aorta Screening INDICATIONS: AAA SCREENING, TOBACCO USE TECHNIQUE: Real time scanning was performed of the aorta and iliac arteries, with image documentatio n. COMPARISON: None FINDINGS: Aorta: Proximal aortic diameter measures 2.7 x 2.8 cm. Mid-aorta measures 2.0 x 2.0 cm. Distal aor tic diameter is 2.3 x 2.3 cm. Iliac arteries: Right common iliac artery measures 1.1 x 1.1 cm. Left common iliac artery measures 0.1 x 1.2 cm. Minimal scattered metastatic plaque noted in the abdominal aorta and the common iliac vessels. IMPRESSION: No evidence of abdominal aortic aneurysm. Reviewed by: Alicia Valadez MD, PhD on 04/02/2021 5:05 PM PST Approved by: Alicia Valadez MD, PhD on 04/02/2021 5:05 PM PST Station ID: [id number]
== END 2021-04-02 07:51 | disposition home or self-care (01) ==
LOC: DI 07:50
PROVIDERS: ATTEND Nurse Practitioner
DX: Z13.6 Encounter for screening for cardiovascular disorders (principal); Z12.2 Encounter for screening for malignant neoplasm of respiratory organs; F17.210 Nicotine dependence, cigarettes, uncomplicated; R91.8 Other nonspecific abnormal finding of lung field; I70.0 Atherosclerosis of aorta

== ENCOUNTER 2021-04-02 07:51 | Outpatient (CLI) | payer OTHER ==
--- NOTE | 2021-04-02 12:56 | CT Report ---
PROCEDURE: Low Dose Lung Cancer Screen INDICATIONS: SMOKER TECHNIQUE: Noncontrast low-dose images were acquired from the pulmonary apices to the posterior costophrenic ang les. Multiplanar MIP reformats were then acquired. For radiation dose reduction, the following was used: automated exposure control, adjustment of mA and/or kV according to patient size. COMPARISON: None. FINDINGS: Image quality: Excellent. Lungs and pleura: There are scattered patchy ill-defined groundglass opacities noted throughout the right upper lobe. No focal consolidation seen in the right upper lobe. There are also similar finding s seen in the left upper lobe with a more focal ill-defined nodular density seen in the anterior left upper lobe measuring up to 12 mm in diameter (axial image 106/series 4). This nodular density abuts the pleura. No focal consolidation seen. There are also multiple scattered pulmonary nodules seen thr oughout the bilateral hemithoraces measuring between 2 mm and 6 mm in size. Some examples as follows: 3 mm posterior right upper lobe nodule seen on image 116/series 4. There is a 4 mm peripheral, anter ior right middle lobe nodule seen on image 168/series 4. There is a 4 mm peripheral right lower lobe nodule seen on image 244/series 4. There is a 3 mm peripheral left lower lobe nodule seen on image 22 1/series 4. There is a 3 mm peripheral left upper lobe nodule seen on image 140/series 4. There is a 6 mm left lower lobe nodule seen on image 276/series 4. No pleural effusion. No septal thickening or nodularity. No pneumothorax. No suspicious pulmonary mas s. Mediastinum: Heart size is normal. No pericardial effusion. Moderate scattered atherosclerotic gary cifications of the coronary arteries are noted. No mediastinal adenopathy by size criteria. Thoracic aorta and central pulmonary arteries are normal in size. Scattered atherosclerotic calcifications o f the aortic arch and thoracic aorta. Esophagus is normal in caliber. No hiatal hernia. Bones and chest wall: No suspicious bony lesions. No acute vertebral body compression fractures. Mu ltilevel spondylitic changes throughout the imaged spine. No axillary or supraclavicular adenopathy by size criteria. The thyroid is normal in size and there are no incidental findings. Abdomen: Visualized upper abdomen solid organs and bowel loops appear normal in the absence of contr ast. IMPRESSION: 1. Multiple scattered patchy ill-defined groundglass opacities noted throughout the bilateral upper l obes with a more focal nodular density seen in the anterior left upper lobe measuring up to 12 mm in diameter. No focal consolidation. These are nonspecific and may represent inflammatory versus infecti ous process. Recommend follow-up CT in 3-6 months to document stability versus resolution. 2. Multiple scattered pulmonary nodules measuring between 2 and 6 mm in size visualized in the bilate ral hemithoraces. Recommend follow-up CT in 3-6 months to document stability. 3. Atherosclerotic vascular disease. CLINICAL RECOMMENDATION STATEMENTS: In patients <35 years with an ITN detected on CT, MRI, or extrathyroidal ultrasound, the Committee re commends further evaluation with dedicated thyroid ultrasound if the nodule is "e1 cm and has no susp icious imaging features, and if the patient has normal life expectancy. In patients "e35 years with an ITN detected on CT, MRI, or extrathyroidal ultrasound, the Committee r ecommends further evaluation with dedicated thyroid ultrasound if the nodule is "e1.5 cm and has no s uspicious imaging features, and if the patient has normal life expectancy. (ACR, 2014) Reviewed by: Naresh Logan MD on 04/02/2021 12:00 PM PST Approved by: Naresh Logan MD on 04/02/2021 12:00 PM PST Station ID: [id number]
== END 2021-04-02 07:52 | disposition home or self-care (01) ==
LOC: DI 07:51
PROVIDERS: ATTEND Nurse Practitioner
DX: Z12.2 Encounter for screening for malignant neoplasm of respiratory organs (principal); F17.210 Nicotine dependence, cigarettes, uncomplicated; R91.8 Other nonspecific abnormal finding of lung field; I70.0 Atherosclerosis of aorta

== ENCOUNTER 2023-07-29 10:50 | Outpatient (CLI) | payer OTHER ==
--- NOTE | 2023-07-29 12:43 | CT Report ---
PROCEDURE: Lung Cancer Screen INDICATIONS: CURRENT SMOKER TECHNIQUE: A CT scan of the chest was performed. Intravenous contrast media was not administered. Images were re corded and evaluated at appropriate window settings. Reformats: axial MIP of the chest, coronal and s agittal. For radiation dose reduction, the following was used: automated exposure control, adjustment of mA and/or kV according to patient size. COMPARISON: CT chest 10/14/2022. Lung cancer screening chest CT 04/02/2021. FINDINGS: Image quality: Excellent. Prior cancer history: Unsure. Lungs and pleura: No pleural effusions. No pneumothorax. Central airways are clear. -Left lower lobe pulmonary nodule measuring 0.7 cm, (4/65), unchanged since at least 04/02/2021. -Left upper lobe subpleural groundglass pulmonary nodule measuring 1.5 cm, (4/39), not significantly changed. -There is additional scattered groundglass opacity appears similar. -Numerous small pulmonary nodules measuring 0.4 cm or less grossly similar. -A few calcified granuloma. Mediastinum: Heart size is normal. Three-vessel coronary artery calcifications. No pericardial effusi on. No large vessel abnormality. No mediastinal adenopathy by size criteria. Chest wall and lower neck: Thyroid is unremarkable. No axillary or supraclavicular adenopathy by size . Small subcutaneous nodules at the upper back, (2/14), similar. These could represent sebaceous cyst . Bones: No aggressive osseous abnormality. Upper Abdomen: Unremarkable. IMPRESSION: No new or enlarging pulmonary nodules. Lung RAD: 2 - Benign. Recommendation: Continue annual screening in 12 Months with LDCT Non-Lung Significant Findings: Coronary Arterial Calcification - Moderate or Severe. Reviewed by: Rahul Pablo MD on 07/29/2023 12:41 PM PDT Approved by: Rahul Pablo MD on 07/29/2023 12:41 PM PDT Station ID: [id number]
== END 2023-07-29 10:51 | disposition home or self-care (01) ==
LOC: DI 10:50
PROVIDERS: ATTEND Nurse Practitioner
DX: Z12.2 Encounter for screening for malignant neoplasm of respiratory organs (principal); I25.10 Atherosclerotic heart disease of native coronary artery without angina pectoris; F17.200 Nicotine dependence, unspecified, uncomplicated